=== PATIENT | female | born 1935 | race Caucasian/White ===

== ENCOUNTER 2017-06-10 22:33 | Inpatient (IN) | payer MEDICARE, MEDICAID ==
[~2017-06-10] VITALS: Ht 162.6 cm; Wt 54.4 kg
[~2017-06-10 22:33] MED LIST: CIPROFLOXACIN500 M2 ORAL; EXELON1.5 MG ORAL; NAMENDA5 MG ORAL
[2017-06-10 22:35] VITALS: BP 126/86
[2017-06-10 23:21] LABS: EOSINOPHILS % (AUTO) 0.7 % (0.0-3.0); HEMATOCRIT 38.2 % (37.0-47.0); HEMOGLOBIN 13.2 G/DL (12.0-16.0); LYMPHOCYTES % (AUTO) 36.2 % (20.0-45.0); MEAN CORPUSCULAR VOLUME 86 FL (80-99); MONOCYTES % (AUTO) 6.1 % (1.0-10.0); PLATELET COUNT 176 K/UL (150-450); RED BLOOD COUNT 4.46 M/UL (4.20-5.40); RED CELL DISTRIBUTION WIDTH 12.7 % (11.6-14.8)
[2017-06-10 23:33] LABS: ANION GAP 10 mmol/L (5-15); BLOOD UREA NITROGEN 9 mg/dL (7-18); CALCIUM 9.3 MG/DL (8.5-10.1); CARBON DIOXIDE 25 MMOL/L (21-32); CHLORIDE 102 MMOL/L (98-107); CREATININE 0.7 MG/DL (0.55-1.30); POTASSIUM 3.3 MMOL/L (3.5-5.1); SODIUM 137 MMOL/L (136-145)
[2017-06-10 23:48] LABS: ALANINE AMINOTRANSFERASE 81 U/L (12-78); ALBUMIN 2.9 G/DL (3.4-5.0); ALBUMIN/GLOBULIN RATIO 0.6 (1.0-2.7); ALKALINE PHOSPHATASE 90 U/L (46-116); ASPARTATE AMINO TRANSFERASE 59 U/L (15-37); BILIRUBIN,DIRECT 0.4 MG/DL (0.0-0.3); BILIRUBIN,TOTAL 1.4 MG/DL (0.2-1.0); CKMB 1.1 NG/ML (0.0-3.6); CREATINE KINASE 34 U/L (26-308)
[2017-06-10 23:49] LABS: APPEARANCE,URINE SLIGHTLY CLOUDY; BILIRUBIN, URINE NEGATIVE (NEGATIVE); COLOR,URINE BROWN; GLUCOSE, URINE (UA) NEGATIVE (NEGATIVE); KETONES,URINE 3+ (NEGATIVE); LEUKOCYTE ESTERASE ,URINE 1+ (NEGATIVE); NITRITE,URINE NEGATIVE (NEGATIVE); PH,URINE 7 (4.5-8.0); PROTEIN,URINE 1+ (NEGATIVE); UROBILINOGEN,URINE 8 MG/DL (0.0-1.0)
[2017-06-11] VITALS (9 sets, daily range): BP systolic 99–126; BP diastolic 64–88
[2017-06-11] MEDS ORDERED: cefTRIAXone 1 GM in NS 55 ML IVPB ONE ×2
--- NOTE | 2017-06-11 00:06 | Emergency Room Report ---
History of Present Illness General Chief Complaint: General Complaint Source: Family Member, Medical Record, EMS Present Illness HPI This is an 82-year-old female with a history of advanced dementia. She presents with chief complaint of weakness and decreased by mouth intake. Is a gradual onset. No nausea no vomiting. History is limited in this patient because of her dementia. No obvious pain. Allergies: Coded Allergies: NO KNOWN ALLERGIES (Unverified Allergy, Unknown, 01/27/15) Patient History Past Medical History: see triage record, old chart reviewed Past Surgical History: other Pertinent Family History: none Social History: Denies: smoking Last Menstrual Period: NA Now: No Immunizations: other Reviewed Nursing Documentation: PMH: Agreed, PSxH: Agreed Nursing Documentation-PMH Hx Diabetes: Yes Hx Cancer: Yes - L BREAST WITH MASTECTOMY, KIDNEY Review of Systems Constitutional: Reports: malaise, weakness Eye: Denies: eye pain, blurred vision ENT: Denies: ear pain, nose congestion, throat swelling Respiratory: Denies: cough, shortness of breath Cardiovascular: Denies: chest pain, palpitations Gastrointestinal: Denies: abdominal pain, diarrhea, nausea, vomiting Musculoskeletal: Denies: back pain, joint pain Skin: Denies: rash Neurological: Denies: headache, numbness Endocrine: Denies: increased thirst, increased urine Hematologic/Lymphatic: Denies: easy bruising All Other Systems: negative except mentioned in HPI Physical Exam Vital Signs Date Time Temp Pulse Resp B/P (MAP) Pulse Ox O2 Delivery O2 Flow Rate FiO2 06/10/17 22:27 97.7 86 16 138/64 97 Room Air 97.7 vitals unremarkable Sp02 EP Interpretation: reviewed, normal General Appearance: well appearing, no apparent distress, alert, thin Head: normocephalic, atraumatic Eyes: bilateral eye PERRL, bilateral eye EOMI ENT: hearing grossly normal, normal pharynx Neck: full range of motion, supple, no meningismus Respiratory: chest non-tender, lungs clear, normal breath sounds Cardiovascular #1: regular rate, rhythm, no murmur Gastrointestinal: normal bowel sounds, non tender, no mass, no organomegaly, no bruit, non-distended Musculoskeletal: back normal, normal range of motion Neurologic: alert Psychiatric: mood/affect normal Skin: warm/dry Medical Decision Making Diagnostic Impression: Primary Impression: Acute metabolic encephalopathy Additional Impressions: Failure to thrive in adult UTI (urinary tract infection) Qualified Codes: N30.00 - Acute cystitis without hematuria Proteinuria Qualified Codes: R80.9 - Proteinuria, unspecified ER Course Patient with generalize weakness and failure to thrive. She may have an infection causing her symptom. This could be advanced dementia. Patient given IV fluid and IV antibiotics. Will admit for further workup. She may need a feeding tube. I confirm with her family that she is a full code. EKG Diagnostic Results Rate: normal Rhythm: NSR ST Segments: no acute changes Rhythm Strip Diag. Results Rhythm Strip Time: 00:06 EP Interpretation: yes Rate: 92 Rhythm: NSR, no PVC's, no ectopy Chest X-Ray Diagnostic Results Chest X-Ray Diagnostic Results : Chest X-Ray Ordered: Yes # of Views/Limited/Complete: 1 View Indication: Chest Pain EP Interpretation: Yes Interpretation: no consolidation, no effusion, no pneumothorax, no acute cardiopulmonary disease Impression: No acute disease Electronically Signed by: Pancho Freitas MD Last Vital Signs Date Time Temp Pulse Resp B/P (MAP) Pulse Ox O2 Delivery O2 Flow Rate FiO2 06/10/17 22:35 97.8 99 17 126/86 98 Room Air 97.8 Status: improved Disposition: ADMITTED INPATIENT Condition: Stable Referrals: ODIN TURK (PCP) PANCHO FREITAS M.D. Jun 11, 2017 00:06
[2017-06-11] MEDS ORDERED: HUMULIN R100 UNIT/1 SUBQ (00:47)
[2017-06-11] MEDS ORDERED: LANTUS5 UNITS SUBQ (00:47)
[2017-06-11] MEDS ORDERED: HEPARIN SO5000 UNIT2 SUBQ (00:47)
[2017-06-11] MEDS ORDERED: NORCO 5-325 TA1 EACH ORAL (00:47)
[2017-06-11] MEDS ORDERED: MILK OF MA400 MG/51 ORAL (00:47)
[2017-06-11] MEDS ORDERED: Heparin 5000 units/ml inj SUBQ SCH (01:30)
[2017-06-11] MEDS ORDERED: Norco 5mg/325mg tab ORAL PRN (01:30)
[2017-06-11] MEDS ORDERED: Zolpidem 5mg tab ORAL PRN (01:45)
[2017-06-11] MEDS ORDERED: Morphine Sulfate 2mg/ml Inj IVP PRN (01:45)
[2017-06-11] MEDS: Heparin 5000 units/ml inj SUBQ SCH ×3 (01:45→20:39)
[2017-06-11] MEDS ORDERED: Morphine Sulfate 4mg/ml Inj IVP PRN (01:45)
[2017-06-11] MEDS ORDERED: Milk of Magnesia 30ml Ud ORAL PRN (01:45)
[2017-06-11] MEDS: Memantine 10mg tab ORAL SCH (08:17)
[2017-06-11] MEDS: Milk of Magnesia 30ml Ud ORAL SCH (08:17)
--- NOTE | 2017-06-11 08:36 | Diagnostic Imaging Report ---
Indication: Pain Technique: XRAY Chest 1v Comparison:01/27/2015 Findings: The heart is normal in size. Aorta is elongated. Lungs are clear. No pleural fluid. There are clips in the right axilla from previous right mastectomy. The bones are unremarkable. Impression: Atherosclerotic change. Previous right mastectomy. No acute abnormality.
[2017-06-11] MEDS ORDERED: Potassium Chloride 50 MEQ in Sodium Chloride 500ML 550 ML IVPB ONE (15:45)
--- NOTE | 2017-06-11 16:14 | History & Physical ---
History and Physical History & Physicial HP dictated #[id number] ODIN TURK Jun 11, 2017 16:14
[2017-06-11] MEDS: Potassium Chloride 40 MEQ in Sodium Chloride 500ML 550 ML IVPB SCH (17:34)
--- NOTE | 2017-06-11 18:45 | General Progress Note ---
Assessment/Plan Assessment/Plan Assessment - anorexia - abnormal LFT - OBS Recommendations NGT for CT scan and for feeding follow LFT PEG next week - will d/w Subjective Allergies: Coded Allergies: NO KNOWN ALLERGIES (Unverified Allergy, Unknown, 01/27/15) Objective Last 24 Hour Vital Signs Date Time Temp Pulse Resp B/P (MAP) Pulse Ox O2 Delivery O2 Flow Rate FiO2 06/11/17 16:00 98.3 96 18 115/70 97 98.3 06/11/17 16:00 97 Room Air 06/11/17 12:00 99 Room Air 06/11/17 12:00 98.3 91 18 117/68 99 98.3 06/11/17 08:00 98.5 89 16 121/78 97 98.5 06/11/17 08:00 97 Room Air 06/11/17 03:51 97.9 90 20 126/68 100 Room Air 97.9 06/11/17 02:20 97.4 90 20 116/66 99 Room Air 97.4 06/11/17 02:10 97.9 89 16 110/68 100 Room Air 97.9 06/11/17 02:00 89 16 110/68 100 Room Air 06/11/17 01:20 97.9 82 14 120/64 100 Room Air 97.9 06/11/17 00:05 86 19 125/88 99 Room Air 06/10/17 22:35 97.8 99 17 126/86 98 Room Air 97.8 06/10/17 22:27 97.7 86 16 138/64 97 Room Air 97.7 Intake and Output 06/10/17 06/11/17 19:00 07:00 Intake Total 1050 ml Output Total 100 ml Balance 950 ml IV Total 1050 ml Output Urine Total 100 ml Laboratory Tests 06/10/17 22:00: Urine Color Brown, Urine Appearance Slightly cloudy, Urine pH 7, Urine Specific [place] 1.015, Urine Protein 1+H, Urine Glucose (UA) Negative, Urine Ketones 3+H , Urine Occult Blood 1+H, Urine Nitrite Negative, Urine Bilirubin Negative, Urine Urobilinogen 8H, Urine Leukocyte Esterase 1+H, Urine RBC 0-2, Urine WBC 2- 4, Urine Squamous Epithelial Cells Few, Urine Amorphous Sediment ModerateH, Urine Bacteria Few 06/10/17 23:05: White Blood Count 8.0, Red Blood Count 4.46, Hemoglobin 13.2, Hematocrit 38.2, Mean Corpuscular Volume 86, Mean Corpuscular Hemoglobin 29.6, Mean Corpuscular Hemoglobin Concent 34.5, Red Cell Distribution Width 12.7, Platelet Count 176, Mean Platelet Volume 7.8, Neutrophils (%) (Auto) 56.0, Lymphocytes (%) (Auto) 36.2, Monocytes (%) (Auto) 6.1, Eosinophils (%) (Auto) 0.7, Basophils (%) (Auto ) 1.0, Sodium Level 137, Potassium Level 3.3L, Chloride Level 102, Carbon Dioxide Level 25, Anion Gap 10, Blood Urea Nitrogen 9, Creatinine 0.7, Estimat Glomerular Filtration Rate , Glucose Level 170H, Calcium Level 9.3, Total Bilirubin 1.4H, Direct Bilirubin 0.4H, Aspartate Amino Transf (AST/SGOT) 59H, Alanine Aminotransferase (ALT/SGPT) 81H, Alkaline Phosphatase 90, Total Creatine Kinase 34, Creatine Kinase MB 1.1, Creatine Kinase MB Relative Index 3.2, Troponin I 0.010, Total Protein 7.9, Albumin 2.9L, Globulin 5.0, Albumin/ Globulin Ratio 0.6L Height (Feet): 5 Height (Inches): 4.00 Weight (Pounds): 120 JUAN MUNOZ Jun 11, 2017 18:45
--- NOTE | 2017-06-11 21:45 | History and Physical Report ---
DATE OF ADMISSION: 06/11/2017 CHIEF COMPLAINT: Poor p.o. intake, significant weight loss, and weakness. HISTORY OF PRESENT ILLNESS: The patient is an 82-year-old female with history of advanced dementia. She lives in [facility]. For the past few months, she has been losing weight. The staff at [facility] were unable to feed her adequately because she would not open her mouth, also Marinol was ordered for appetite booster however she was not taking that either. Eventually it was decided to send her to the emergency room for evaluation, possibility for a G-tube placement. PAST MEDICAL HISTORY: Also includes history of breast cancer status post left mastectomy. The patient has history of diabetes mellitus and history of advanced dementia. SOCIAL HISTORY: No history of smoking or alcohol abuse. ALLERGIES: No known drug allergies. REVIEW OF SYSTEMS: Unobtainable. PHYSICAL EXAMINATION: GENERAL: The patient is an elderly female, in no acute distress. VITAL SIGNS: In the emergency room, blood pressure was 138/64, pulse 86, respiratory rate 16, temperature 97.7. HEENT: [place] conjunctivae. Anicteric sclerae. NECK: Supple. LUNGS: Clear to auscultation. HEART: S1 and S2 without murmurs or rubs. ABDOMEN: Soft and nontender. EXTREMITIES: No cyanosis or edema. LABORATORY FINDINGS: The CBC shows WBC of 8000, hematocrit 38.2, hemoglobin is 13.3, The chemistry panel shows a serum sodium of 137, potassium 3.3, chloride 102, CO2 25, BUN 9, creatinine 0.7, blood sugar 170. Total bilirubin is 1.4, AST is 59, ALT 81. Albumin is 2.9. ASSESSMENT: This is an 82-year-old, female with history of failure to thrive, significant weight loss, poor p.o. intake, also not taking her medications adequately, refuses to open her mouth. She is also slightly hypokalemic. PLAN: The patient will be hydrated with IV fluids. Gastrointestinal consultation was obtained for possible G-tube placement. The case was discussed with who is power of lacrosse coach and he agreed with to proceed with G-tube if necessary. Laboratories will be followed and adjustment will be in the patient's regimen. A hemoglobin A1c will be checked tomorrow because of the patient's history of diabetes and recently blood sugar has not been controlled well. Chilango Luna M.D. DR: Rafael JOB#: [id number] CC: CINTIA
[2017-06-11] MEDS: D5 1/2NS 1,000 ML IV SCH (23:43)
[2017-06-12] VITALS: BP 141/77
[2017-06-12 04:00] VITALS: BP 110/68
[2017-06-12 08:02] VITALS: BP 116/73
[2017-06-12] MEDS ORDERED: Acetaminophen 650 MG SUPP RECTAL PRN (09:00)
[2017-06-12] MEDS ORDERED: NS 275ml ONE (09:58)
[2017-06-12] MEDS ORDERED: D5 1/2NS 1000ml IV ONE (09:58)
[2017-06-12] MEDS ORDERED: Tubing IV Secondary IV ONE (09:58)
--- NOTE | 2017-06-12 10:02 | General Progress Note ---
Subjective Allergies: Coded Allergies: NO KNOWN ALLERGIES (Unverified Allergy, Unknown, 01/27/15) Subjective await CT abd Discussed with RN GT next week Objective Last 24 Hour Vital Signs Date Time Temp Pulse Resp B/P (MAP) Pulse Ox O2 Delivery O2 Flow Rate FiO2 06/12/17 08:02 100.8 85 18 116/73 99 Room Air 100.8 06/12/17 04:00 99.5 74 20 110/68 94 Room Air 99.5 06/12/17 00:00 99.3 100 20 141/77 96 Room Air 99.3 06/11/17 20:00 98.2 100 21 99/76 95 Room Air 98.2 06/11/17 16:00 98.3 96 18 115/70 97 98.3 06/11/17 16:00 97 Room Air 06/11/17 12:00 99 Room Air 06/11/17 12:00 98.3 91 18 117/68 99 98.3 Intake and Output 06/11/17 06/12/17 19:00 07:00 Intake Total 690 ml 525 ml Balance 690 ml 525 ml Intake Oral 590 ml IV Total 100 ml 525 ml # Voids 2 2 # Bowel Movements 1 1 Laboratory Tests 06/12/17 05:10: Hemoglobin A1c 7.4H Height (Feet): 5 Height (Inches): 4.00 Weight (Pounds): 120 ODIN TURK Jun 12, 2017 10:02
--- NOTE | 2017-06-12 10:14 | Diagnostic Imaging Report ---
Indication: Abdominal pain Technique: CT scan of the abdomen and pelvis was performed from the diaphragms to the symphysis pubis with intravenous contrast material only per specific request of the ordering physician.. 5 mm sections were generated. Axial, coronal, and sagittal images are presented. Dose: Total Dose Length Product - DLP [address] Dose Index - CTDIvol(s) 12.77 mGy. Automated exposure control was utilized for dose reduction. Comparison: None Findings: There is some dependent atelectasis bilaterally. The liver is normal. The gallbladder is unremarkable. The spleen is normal. The pancreas is normal. There is a duodenal diverticulum. Adrenal glands are normal. Scarring is present in the right kidney in the upper pole. There is a dilated right renal collecting system. Hypodensities are noted bilaterally, too small to characterize. The aorta contains calcification. There is no aneurysm. A small hiatal hernia is present. Retroperitoneum is free of adenopathy. Diverticula are present in the colon. There is some focal thickening of the sigmoid colon. The uterus is normal. The bladder contains a calcification measuring 9 mm. There has been previous fusion in the lumbar spine at L4-5. Unilateral pedicle screws are also present at this level. Impression: Focal thickening of the sigmoid colon. The possibility of either a sigmoid mass or mild diverticulitis is not excluded. Further evaluation with direct visualization suggested. Diverticulosis. Small hiatal hernia. Scarring in the upper pole the right kidney. Renal hypodensities, too small to characterize but likely representing cysts. Dilated right renal collecting system. This could be chronic though this is not certain. Atherosclerotic change. Duodenal diverticulum. Bladder calculus. Previous fusion of the lumbar spine as described. The CT scanner at [facility] is accredited by the [employer] [employer] and the scans are performed using protocols designed to limit radiation exposure to as low as reasonably achievable to attain images of sufficient resolution adequate for diagnostic evaluation.
[2017-06-12] MEDS: Memantine 10mg tab ORAL SCH (10:52)
[2017-06-12] MEDS: Milk of Magnesia 30ml Ud ORAL SCH (10:52)
[2017-06-12] MEDS: Heparin 5000 units/ml inj SUBQ SCH ×2 (10:55→21:06)
[2017-06-12] MEDS: D5 1/2NS 1,000 ML IV SCH (11:24)
[2017-06-12 11:42] VITALS: BP 117/69
--- NOTE | 2017-06-12 15:38 | General Progress Note ---
Assessment/Plan Assessment/Plan Assessment - anorexia - abnormal LFT - negative CT - ? sigmoid pathology (vs. collapsed lumen) - OBS Recommendations Follow LFT check CPK check Hepatitis serolofies check stool OB PEG Tuesday family to decide on eventual colonoscopy Subjective Allergies: Coded Allergies: NO KNOWN ALLERGIES (Unverified Allergy, Unknown, 01/27/15) Subjective above noted patient's refused NGT so no feeds overnight also, patient unable to take PO contrast w/o NGT for CT CT negative for liver lesions ? sigmoid colon pathology (d/w daughter over phone) pt non communicative Objective Last 24 Hour Vital Signs Date Time Temp Pulse Resp B/P (MAP) Pulse Ox O2 Delivery O2 Flow Rate FiO2 06/12/17 11:42 98.2 90 18 117/69 99 Room Air 98.2 06/12/17 10:46 98.2 98.2 06/12/17 08:02 100.8 85 18 116/73 99 Room Air 100.8 06/12/17 04:00 99.5 74 20 110/68 94 Room Air 99.5 06/12/17 00:00 99.3 100 20 141/77 96 Room Air 99.3 06/11/17 20:00 98.2 100 21 99/76 95 Room Air 98.2 06/11/17 16:00 98.3 96 18 115/70 97 98.3 06/11/17 16:00 97 Room Air Intake and Output 06/11/17 06/12/17 19:00 07:00 Intake Total 690 ml 525 ml Balance 690 ml 525 ml Intake Oral 590 ml IV Total 100 ml 525 ml # Voids 2 2 # Bowel Movements 1 1 Laboratory Tests 06/12/17 05:10: Hemoglobin A1c 7.4H Height (Feet): 5 Height (Inches): 4.00 Weight (Pounds): 120 Objective Elderly woman NCAT supple CTA RRR Soft NT ND no edema OBS JUAN MUNOZ Jun 12, 2017 15:38
[2017-06-12 16:00] VITALS: BP 112/62
--- NOTE | 2017-06-12 16:26 | Cardiology Report ---
APPROVED REPORT EKG Measurement Heart [id number] CT 132P39 [id number] Normal sinus rhythm Left axis deviation Inferior-posterior infarct, age undetermined Anterior infarct, age undetermined Abnormal ECG
[2017-06-12] MEDS: Potassium Chloride 40 MEQ in Sodium Chloride 500ML 550 ML IVPB SCH (17:30)
[2017-06-12 20:00] VITALS: BP 100/64
[2017-06-13] VITALS: BP 110/70
[2017-06-13] MEDS: D5 1/2NS 1,000 ML IV SCH ×2 (00:44→13:26)
[2017-06-13 04:00] VITALS: BP 97/61
[2017-06-13 05:47] VITALS: BP 107/65
[2017-06-13 07:58] LABS: ALANINE AMINOTRANSFERASE 53 U/L (12-78); ALBUMIN 2.4 G/DL (3.4-5.0); ALBUMIN/GLOBULIN RATIO 0.6 (1.0-2.7); ALKALINE PHOSPHATASE 68 U/L (46-116); ANION GAP 8 mmol/L (5-15); ASPARTATE AMINO TRANSFERASE 27 U/L (15-37); BILIRUBIN,TOTAL 0.5 MG/DL (0.2-1.0); BLOOD UREA NITROGEN 2 mg/dL (7-18); CALCIUM 8.6 MG/DL (8.5-10.1); CARBON DIOXIDE 25 MMOL/L (21-32); CHLORIDE 106 MMOL/L (98-107); CREATINE KINASE 23 U/L (26-308); CREATININE 0.6 MG/DL (0.55-1.30); POTASSIUM 3.3 MMOL/L (3.5-5.1); SODIUM 139 MMOL/L (136-145)
[2017-06-13 08:00] VITALS: BP 108/78
[2017-06-13] MEDS: Heparin 5000 units/ml inj SUBQ SCH (09:00)
[2017-06-13] MEDS: Memantine 10mg tab ORAL SCH (09:12)
[2017-06-13] MEDS: Milk of Magnesia 30ml Ud ORAL SCH (09:12)
--- NOTE | 2017-06-13 09:26 | General Progress Note ---
Assessment/Plan Problem List: (1) Failure to thrive in adult ICD Codes: R62.7 - Adult failure to thrive SNOMED: 490797808, 687706201 (2) Malnutrition ICD Codes: E46 - Unspecified protein-calorie malnutrition SNOMED: 44382433 (3) DM (diabetes mellitus) ICD Codes: E11.9 - Type 2 diabetes mellitus without complications SNOMED: 57564926 Status Narrative CT abd noted Subjective Allergies: Coded Allergies: NO KNOWN ALLERGIES (Unverified Allergy, Unknown, 01/27/15) Subjective Discussed with RN await GT colonoscopy ? Objective Last 24 Hour Vital Signs Date Time Temp Pulse Resp B/P (MAP) Pulse Ox O2 Delivery O2 Flow Rate FiO2 06/13/17 08:00 98.4 92 20 108/78 99 98.4 06/13/17 05:47 89 107/65 06/13/17 04:00 99.4 83 18 97/61 94 Room Air 99.4 06/13/17 00:00 99.6 97 19 110/70 98 Room Air 99.6 06/12/17 20:00 98.4 98 20 100/64 97 Room Air 98.4 06/12/17 16:00 97.7 100 18 112/62 98 97.7 06/12/17 11:42 98.2 90 18 117/69 99 Room Air 98.2 06/12/17 10:46 98.2 98.2 Intake and Output 06/12/17 06/13/17 19:00 07:00 Intake Total 1263 ml 900 ml Balance 1263 ml 900 ml Intake Oral 360 ml IV Total 903 ml 900 ml # Voids 2 3 # Bowel Movements 1 Laboratory Tests 06/13/17 04:40: Sodium Level 139, Potassium Level 3.3L, Chloride Level 106, Carbon Dioxide Level 25, Anion Gap 8, Blood Urea Nitrogen 2L, Creatinine 0.6, Estimat Glomerular Filtration Rate , Glucose Level 119H, Calcium Level 8.6, Total Bilirubin 0.5, Aspartate Amino Transf (AST/SGOT) 27, Alanine Aminotransferase ( ALT/SGPT) 53, Alkaline Phosphatase 68, Total Creatine Kinase 23L, Total Protein 6.6, Albumin 2.4L, Globulin 4.2, Albumin/Globulin Ratio 0.6L, Hepatitis A IgM Antibody [Pending], Hepatitis B Surface Antigen [Pending], Hepatitis B Core IgM Antibody [Pending], Hepatitis C Antibody [Pending] Height (Feet): 5 Height (Inches): 4.00 Weight (Pounds): 120 Cardiovascular: normal rate Respiratory/Chest: lungs clear Edema: no edema noted ODIN Apple Jun 13, 2017 09:26
[2017-06-13 12:00] VITALS: BP 108/65
--- NOTE | 2017-06-13 15:04 | Wound Care Consultation ---
Wound Assessment Wound Assessment #1: Wound Number: 1 Wound Present on Admission: Yes New Wound: No Status Change of Wound: No Wound Location Body Site Modif: left Wound Location Body Site: toe - 1st Wound Type: scab Ted Test: Does not Ted Wound Length: 0.5 Wound Width: 0.5 Wound Depth: utd Percent of Wound Black/Brown: 100 - dry adhered scab Wound Drainage Amount: None Wound Drainage Odor: None/Absent Tissue Surrounding Wound: Intact Wound General Appearance: Open to air, Clean/Dry Wound Assessment #2: Wound Number: 2 Wound Present on Admission: Yes New Wound: No Status Change of Wound: No Wound Location Body Site Modif: right Wound Location Body Site: trochanter Wound Type: pressure ulcer Ted Test: Does not Ted Pressure Ulcer Stage: Deep Tissue Injury - at risk for further skin breakdown Wound Thickness: Full Thickness Wound Length: 5.0 Wound Width: 5.0 Wound Depth: utd Percent of Wound Purple/Maroon: 100 Wound Drainage Amount: None Wound Drainage Odor: None/Absent Tissue Surrounding Wound: Erythemic - maroon. Wound General Appearance: Reddened Wound Assessment #3: Wound Number: 3 Wound Present on Admission: Yes New Wound: No Status Change of Wound: No Wound Location Body Site Modif: right Wound Location Body Site: heel Wound Type: pressure ulcer Ted Test: Does not Ted Pressure Ulcer Stage: I Wound Length: 4.0 Wound Width: 4.0 Percent of Wound [place]/Red: 100 Wound Drainage Amount: None Wound Drainage Odor: None/Absent Tissue Surrounding Wound: Intact Wound General Appearance: Reddened Wound Assessment #4: Wound Number: 4 Wound Present on Admission: Yes New Wound: No Status Change of Wound: No Wound Location Body Site Modif: left, medial Wound Location Body Site: knee Wound Type: pressure ulcer Ted Test: Does not Ted Pressure Ulcer Stage: Deep Tissue Injury - with full thickness scar tissue present surrounding tissue noted deep red/maroon color. at risk for skin breakdown. Wound Thickness: Full Thickness Wound Length: 1.0 Wound Width: 1.0 Wound Depth: utd Percent of Wound [place]/Red: 50 - deep red Percent of Wound Purple/Maroon: 50 Wound Drainage Amount: None Wound Drainage Odor: None/Absent Tissue Surrounding Wound: Erythemic Wound General Appearance: Reddened Wound Assessment #5: Wound Number: 5 Wound Present on Admission: Yes New Wound: No Status Change of Wound: No Wound Location Body Site Modif: left Wound Location Body Site: trochanter Wound Type: pressure ulcer Ted Test: Does not Ted Pressure Ulcer Stage: Deep Tissue Injury Wound Thickness: Full Thickness Wound Length: 4.0 Wound Width: 4.0 Wound Depth: utd Percent of Wound Purple/Maroon: 100 Wound Drainage Amount: None Wound Drainage Odor: None/Absent Tissue Surrounding Wound: Erythemic Wound General Appearance: Reddened Wound Assessment #6: Wound Number: 6 Wound Present on Admission: Yes New Wound: No Status Change of Wound: No Wound Location Body Site Modif: left Wound Location Body Site: heel Wound Type: pressure ulcer Ted Test: Does not Ted Pressure Ulcer Stage: Unstageable - noted with full htickness scar tissue and yellow and brown adhered dry necrotic scabbing intact. Wound Thickness: Full Thickness Wound Length: 4.0 Wound Width: 4.0 Wound Depth: utd Wound Drainage Amount: None Wound Drainage Odor: None/Absent Tissue Surrounding Wound: Erythemic Wound Comment #1 left 1st tip of toe dry scab. #2 Right trochanter deep tissue injury. possible stage 3/4 #3 right heel stage 1. #4 left medial knee pressure ulcer deep tissue injury with full thickness scar tissue present. #5 left trochanter deep tissue injury. #6 Left heel unstageable pressure ulcer. Recommendation. -Local wound care as ordered. -Keep clean and dry. -Offload affected sites. -Turn and reposition. -Heel protectors. -Apply low air loss spr mattress. -avoid shear and friction. -Assess and notify MD for any further change of condition to skin noted. KALIN RUFF Jun 13, 2017 15:04
[2017-06-13 16:00] VITALS: BP 117/74
[2017-06-13] MEDS ORDERED: D5 1/2NS 1000ml IV ONE (17:59)
--- NOTE | 2017-06-13 22:10 | General Progress Note ---
Assessment/Plan Assessment/Plan Assessment - anorexia - abnormal LFT - negative CT - ? sigmoid pathology (vs. collapsed lumen) - OBS Recommendations f/u Hepatitis serologies - pending check stool OB PEG cancelled per family request Subjective Allergies: Coded Allergies: NO KNOWN ALLERGIES (Unverified Allergy, Unknown, 01/27/15) Subjective called me earlier today in am says has had a family meeting now family do not want a PEG want to take patient back to SNF and try PO diet He understands patient not eating accepts risks of further malnutrition, dehydration, bed sores, , etc also advised regarding changes seen in colon advised can evaluate with colonoscopy now, or later he said he will think about it and contact me later if interested Objective Last 24 Hour Vital Signs Date Time Temp Pulse Resp B/P (MAP) Pulse Ox O2 Delivery O2 Flow Rate FiO2 06/13/17 16:00 97.5 86 18 117/74 98 97.5 06/13/17 12:00 98.1 87 19 108/65 95 Room Air 98.1 06/13/17 08:00 98.4 92 20 108/78 99 98.4 06/13/17 05:47 89 107/65 06/13/17 04:00 99.4 83 18 97/61 94 Room Air 99.4 06/13/17 00:00 99.6 97 19 110/70 98 Room Air 99.6 Intake and Output 06/12/17 06/13/17 19:00 07:00 Intake Total 1263 ml 900 ml Balance 1263 ml 900 ml Intake Oral 360 ml IV Total 903 ml 900 ml # Voids 2 3 # Bowel Movements 1 Laboratory Tests 06/13/17 04:40: Sodium Level 139, Potassium Level 3.3L, Chloride Level 106, Carbon Dioxide Level 25, Anion Gap 8, Blood Urea Nitrogen 2L, Creatinine 0.6, Estimat Glomerular Filtration Rate , Glucose Level 119H, Calcium Level 8.6, Total Bilirubin 0.5, Aspartate Amino Transf (AST/SGOT) 27, Alanine Aminotransferase ( ALT/SGPT) 53, Alkaline Phosphatase 68, Total Creatine Kinase 23L, Total Protein 6.6, Albumin 2.4L, Globulin 4.2, Albumin/Globulin Ratio 0.6L, Hepatitis A IgM Antibody [Pending], Hepatitis B Surface Antigen [Pending], Hepatitis B Core IgM Antibody [Pending], Hepatitis C Antibody [Pending] Height (Feet): 5 Height (Inches): 4.00 Weight (Pounds): 120 Objective Elderly woman NCAT supple CTA RRR Soft NT ND no edema OBS JUAN MUNOZ Jun 13, 2017 22:10
[2017-06-14] MEDS ORDERED: ceFAZolin sod 1 GM in D5W 55 ML IVPB ONE (06:00)
--- NOTE | 2017-06-16 10:34 | Discharge Summary ---
Discharge Summary Hospital Course Date of Admission Jun 11, 2017 at 01:05 Date of Discharge Jun 13, 2017 at 18:00 Admitting Diagnosis Failure to thrive; UTI HPI Sydnie Mesa is a 82 year old female who was admitted on Jun 11, 2017 at 01:05 for Failure To Thrive/ Urinary Tract Infection Hospital Course dc summary #[id number] Discharge Medications Continued Medications: Heparin Sod (Porcine) (Heparin Sodium*) 5 000/1 Ml Vial 5000 UNITS SUBQ EVERY 12 HOURS, VIAL Hydrocodone Bit/Acetaminophen 5-325* ([place] 5-325*) 1 Each Tablet 1 TAB ORAL Q4H PRN for For Pain, TAB 0 Refills Insulin Glargine (Lantus) 100 Unit/1 Ml Vial 0 SUBQ BEDTIME, #1 EA 0 Refills Insulin Regular, Human (Humulin R) 100 Unit/1 Ml Vial 0 SUBQ, VIAL Magnesium Hydroxide* (Milk Of Magnesia*) 400 Mg/5 Ml Oral.susp 30 ML ORAL DAILY, ML Memantine Hcl* (Namenda*) 5 Mg Tablet Unknown Dose ORAL DAILY, TAB Rivastigmine Tartrate* (Exelon*) 1.5 Mg Capsule Unknown Dose ORAL TWICE A DAY, #20 CAP 0 Refills Discontinued Medications: Ciprofloxacin Hcl* (Ciprofloxacin Hcl*) 500 Mg Tablet 500 MG ORAL Q12H, #20 TAB Discharge Condition Upon Discharge: stable Discharge Disposition Patient was discharged to SNF/Subacute Facility(03) Discharge Diagnoses: Discharge Instructions Discharge Instructions Special Instructions I have been assigned to complete a D/C Summary on this account. I was not involved in the patient management Cristina Farmer NP ([place]) Jun 16, 2017 10:34
--- NOTE | 2017-06-17 07:45 | Discharge Summary 2 SIG ---
DATE OF ADMISSION: 06/11/2017 DATE OF DISCHARGE: 06/13/2017 REASON FOR ADMISSION: 82-year-old female with past medical history of breast cancer, status post mastectomy, diabetes mellitus, and advanced dementia, was sent from the assisted facility for evaluation. The patient noted to have poor oral intake, was losing weight, and blood sugar recently was not well controlled as well. Upon evaluation in ED, noted stable vital signs. No leukocytosis. Hemoglobin and hematocrit stable. Potassium - 3.3, otherwise stable electrolytes. Blood sugar -170. Albumin -2.9. AST- 59 and ALT- 81. The patient admitted with diagnoses of acute metabolic encephalopathy, failure to thrive, poor oral intake, significant weight loss, diabetes mellitus, abnormal LFT, and advanced dementia. HOSPITAL COURSE: The patient admitted. The patient started on IV hydration. GI consult was requested. The patient's who was also the patient's durable cizec-qw-tsgstzib, initially agreed with G-tube placement if necessary. GI closely followed. NG-tube was placed for contrast to get CT of the abdomen and pelvis in view of elevated LFT. LFTs were trending down. Hepatitis panel was negative. CT of the abdomen and pelvis revealed no liver pathology and showed questionable sigmoid pathology versus collapsed lumen. Initially PEG placement was planned. Wound care provided as per wound care nurse recommendation for right trochanter deep tissue injury, possible stage III or IV, and right heel stage I pressure ulcer, both present on admission. Electrolytes and renal parameters were closely monitored. Electrolytes were corrected as needed. Nephrotoxics were avoided. Blood sugar was managed with sliding scale of insulin. Hemoglobin A1c -7.4. DVT prophylaxis provided. Bowel regimen instituted. Supportive care provided. Dietitian had seen and evaluated the patient, deemed the patient to be a high risk for malnutrition. She recommended tube feeding type and rate (after G tube placement) calculated on daily calorie needs as well as the protein supplements to assist with wound healing and for nutritional support. However, who was the patient's durable wiste-er-wmchbtan, eventually declined to sign the consent for gastrostomy tube placement, and the patient subsequently was transferred back to assisted facility. FINAL DIAGNOSES: 1. Acute metabolic encephalopathy. 2. Failure to thrive in adult. 3. Anorexia. 4. Abnormal liver function tests, resolved. 5. Advanced dementia. 6. Diabetes mellitus. 7. Significant weight loss. 8. Right trochanter deep tissue injury, possible stage III or IV, present on admission. 9. Right heel stage I pressure ulcer, present on admission. 10. Malnutrition. DISCHARGE MEDICATIONS: See medication reconciliation list. DISCHARGE INSTRUCTIONS: The patient discharged to assisted facility. Follow up with medical doctor at the facility. Chilango Luna M.D. I have been assigned to dictate discharge summary on this account and I was not involved in the patient's management. Cristina LeyvaE.J. Noble HospitalNelly, N.P. DR: SYDNI JOB#: [id number] CC: CINTIA
== END 2017-06-13 18:00 | DRG 70 ==
LOC: EDBD 22:33 → EMR 23:17 → 4W 06-11 01:05 → EDBEDREQ 06-11 01:16
DX: G93.41 Metabolic encephalopathy (principal); L89.214 Pressure ulcer of right hip, stage 4; E46 Unspecified protein-calorie malnutrition; F03.90 Unspecified dementia, unspecified severity, without behavioral disturbance, psychotic disturbance, mood disturbance, and anxiety; L89.611 Pressure ulcer of right heel, stage 1; E11.9 Type 2 diabetes mellitus without complications; R62.7 Adult failure to thrive; Z85.3 Personal history of malignant neoplasm of breast; Z90.12 Acquired absence of left breast and nipple; R79.89 Other specified abnormal findings of blood chemistry
CPT/HCPCS: 36415; 71045; 74177; 80053; 81003; 82248; 82550; 82553; 83036; 84484; 85025; 86705; 86709; 86803; 87081; 87340; 93005; 99285

== ENCOUNTER 2018-01-15 23:06 | Emergency (ER) | payer MEDICARE, MEDICAID ==
[~2018-01-15] VITALS: Ht 162.6 cm; Wt 56.2 kg
[~2018-01-15 23:06] MED LIST changes: +HEPARIN SO5000 UNIT2 SUBQ; +HUMULIN R100 UNIT/1 SUBQ; +LANTUS5 UNITS SUBQ; +MILK OF MA400 MG/51 ORAL; +NORCO 5-325 TA1 EACH ORAL
--- NOTE | 2018-01-15 23:28 | Emergency Room Report ---
History of Present Illness General Chief Complaint: General Complaint Source: EMS Present Illness HPI Patient was brought in by paramedics Report was that the patient had pulled out her NG feeding tube earlier this morning This was replaced at the nursing facility and patient has been getting fed However the positioning was not confirmed Patient herself has significant dementia Not able to provide any history This does limit the history of present illness There was no reports of vomiting or diarrhea No reports of any cough or fever Allergies: Coded Allergies: NO KNOWN ALLERGIES (Unverified Allergy, Unknown, 01/27/15) Patient History Past Medical History: see triage record Pertinent Family History: none Reviewed Nursing Documentation: PMH: Agreed; PSxH: Agreed Nursing Documentation-PMH Hx Cardiac Problems: No Hx Diabetes: Yes History Of Psychiatric Problem: Yes - dementia Hx Dementia: Yes Review of Systems All Other Systems: negative except mentioned in HPI Physical Exam Vital Signs Date Time Temp Pulse Resp B/P (MAP) Pulse Ox O2 Delivery O2 Flow Rate FiO2 01/15/18 23:07 98.2 86 16 92/60 98 Room Air 98.2 Sp02 EP Interpretation: reviewed, normal General Appearance: no apparent distress Head: normocephalic, atraumatic Eyes: bilateral eye PERRL, bilateral eye EOMI ENT: normal pharynx Neck: supple, other - Dobbhoff in position Respiratory: lungs clear, normal breath sounds Cardiovascular #1: regular rate, rhythm Gastrointestinal: non tender, soft Musculoskeletal: other - Patient chronically debilitated no obvious focal deficit Neurologic: responsive - To verbal and physical stimuli Skin: normal color, no rash Lymphatic: no adenopathy Medical Decision Making Diagnostic Impression: Primary Impression: Encounter for nasogastric (NG) tube placement ER Course Given the history exam and presentation X-ray imaging was obtained which shows that the feeding tube has gone through the abdominal area appropriately However does appear to have extended past and possibly entering into the duodenum Therefore this was pulled back one to 2 inches And patient was transferred to this nursing facility PMD notified nursing facility notified, Other X-Ray Diagnostic Results Other X-Ray Diagnostic Results : X-Ray ordered: KUB # of Views/Limited Vs Complete: 1 View Indication: Other - Line placement EP Interpretation: Yes Interpretation: no dislocation, no fractures, nonspecific bowel gas, other - Feeding tube appears to pass through the stomach possibly into the duodenum, Impression: No acute disease Electronically Signed by: Rosa Maria Dyer DO Last Vital Signs Date Time Temp Pulse Resp B/P (MAP) Pulse Ox O2 Delivery O2 Flow Rate FiO2 01/15/18 23:07 98.2 86 16 92/60 98 Room Air 98.2 Status: improved Disposition: XFER SNF Condition: Improved Additional Instructions: Patient is provided with the discharge instructions notified to follow up with primary doctor in the next 2-3 days otherwise return to the er with any worsening symptoms. Please note that this report is being documented using [employer] technology. This can lead to erroneous entry secondary to incorrect interpretation by the dictating instrument. Rosa Maria Dyer DO Jan 15, 2018 23:28
[2018-01-16 00:15] VITALS: BP 114/69
[2018-01-16 00:20] VITALS: BP 114/69
--- NOTE | 2018-01-16 09:46 | Diagnostic Imaging Report ---
Indication: Reason For Exam: TUBE PLCMT Technique: Supine view of the upper abdomen Comparison: Senior Supplier Quality Engineer image from CT scan 06/12/2017 Findings: There is a weighted enteric feeding tube in place, tip projected level gastric antrum. There are postsurgical changes of lower lumbar spine. Visualized bowel gas is unremarkable Impression: Satisfactory position of nasogastric tube
== END 2018-01-16 00:20 ==
LOC: EDBD 23:06 → EMR 23:38
DX: Z46.59 Encounter for fitting and adjustment of other gastrointestinal appliance and device (principal); E11.9 Type 2 diabetes mellitus without complications; F03.90 Unspecified dementia, unspecified severity, without behavioral disturbance, psychotic disturbance, mood disturbance, and anxiety
CPT/HCPCS: 74018; 99284

== ENCOUNTER 2018-03-10 12:05 | Emergency (ER) | payer MEDICARE, MEDICAID ==
[~2018-03-10] VITALS: Ht 152.4 cm; Wt 54.4 kg
[2018-03-10 12:11] VITALS: BP 92/56
--- NOTE | 2018-03-10 14:09 | Emergency Room Report ---
History of Present Illness General Chief Complaint: Malfunctioning Gastric Tube Source: Medical Record Present Illness HPI Patient is 82-year-old female sent by long-term for NG-tube replacement. Patient was noted to have malfunctioning tube. This had become clogged. Patient was noted to be nonverbal. The patient not been vomiting. History is markedly limited by patient's mental status. History is obtained from long-term staff. Allergies: Coded Allergies: NO KNOWN ALLERGIES (Unverified Allergy, Unknown, 01/27/15) Patient History Past Medical History: see triage record Reviewed Nursing Documentation: PMH: Agreed; PSxH: Agreed Nursing Documentation-PMH Past Medical History Deferred: Pt Cognitively Impaired Past Medical History: Deferred Hx Cardiac Problems: No Hx Diabetes: Yes Hx Neurological Problems: Yes Hx Dementia: Yes Review of Systems All Other Systems: negative except mentioned in HPI Physical Exam Vital Signs Date Time Temp Pulse Resp B/P (MAP) Pulse Ox O2 Delivery O2 Flow Rate FiO2 03/10/18 11:54 97.7 101 24 130/80 98 Nasal Cannula 2.0 General Appearance: alert, Chronically Ill Head: normocephalic, atraumatic Eyes: bilateral eye other - eyes open Neck: supple, limited range of motion Respiratory: decreased breath sounds, speaking full sentences Cardiovascular #1: normal peripheral pulses, regular rate, rhythm Gastrointestinal: non tender, soft Neurologic: other - poor alertness, bed ridden Psychiatric: depressed affect Skin: no rash Medical Decision Making Diagnostic Impression: Primary Impression: Encounter for nasogastric (NG) tube placement ER Course Patient presented for NG-tube replacement. The patient's NG tube was changed by nursing staff. The patient was noted to have adequate placement on post procedure x-ray. The patient was discharged back to nursing facility via BLS ambulance Last Vital Signs Date Time Temp Pulse Resp B/P (MAP) Pulse Ox O2 Delivery O2 Flow Rate FiO2 03/10/18 12:11 98.8 98 21 92/56 100 Nasal Cannula 03/10/18 11:54 2.0 Status: improved Disposition: [facility] Condition: Stable Referrals: NON PHYSICIAN (PCP) Patient Instructions: Feeding Tube Use Jose Schilling MD Mar 10, 2018 14:09
[2018-03-10 14:11] VITALS: BP 125/85
--- NOTE | 2018-03-10 14:11 | Diagnostic Imaging Report ---
Indication: Post nasogastric tube placement Technique: Supine view of the upper abdomen Comparison: 01/15/2018 Findings: There is a nasogastric tube in place, tip projected level gastric fundus, proximal port just beyond the expected level gastroesophageal junction. Bowel gas pattern is unremarkable. Lumbar spine fusion hardware is noted. Surgical clips are seen in the right axilla. Impression: Satisfactory nasogastric intubation Other findings as noted
== END 2018-03-10 14:13 | disposition home or self-care (01) ==
LOC: EDBD 12:05 → EMR 13:48
DX: K94.23 Gastrostomy malfunction (principal); F03.90 Unspecified dementia, unspecified severity, without behavioral disturbance, psychotic disturbance, mood disturbance, and anxiety; E11.9 Type 2 diabetes mellitus without complications
CPT/HCPCS: 74018; 99283

== ENCOUNTER 2018-03-16 11:57 | Inpatient (IN) | payer MEDICARE, MEDICAID ==
[~2018-03-16] VITALS: Ht 160 cm; Wt 45.4 kg
[2018-03-16] MEDS ORDERED: Sodium Chloride 500ML 500 ML IV ONE (12:07)
[2018-03-16 12:38] LABS: BASOPHILS % (AUTO) 1.6 % (0.0-2.0); EOSINOPHILS % (AUTO) 1.2 % (0.0-3.0); HEMATOCRIT 30.2 % (37.0-47.0); HEMOGLOBIN 9.5 G/DL (12.0-16.0); LYMPHOCYTES % (AUTO) 21.7 % (20.0-45.0); MEAN CORPUSCULAR VOLUME 82 FL (80-99); MONOCYTES % (AUTO) 11.2 % (1.0-10.0); NEUTROPHILS % (AUTO) 64.3 % (45.0-75.0); PLATELET COUNT 380 K/UL (150-450); RED BLOOD COUNT 3.69 M/UL (4.20-5.40); RED CELL DISTRIBUTION WIDTH 16.3 % (11.6-14.8)
[2018-03-16 12:42] LABS: INR 1.1 (0.9-1.1)
[2018-03-16 12:55] LABS: ANION GAP 9 mmol/L (5-15); BLOOD UREA NITROGEN 20 mg/dL (7-18); CALCIUM 9.2 MG/DL (8.5-10.1); CARBON DIOXIDE 25 MMOL/L (21-32); CHLORIDE 105 MMOL/L (98-107); CREATININE 0.5 MG/DL (0.55-1.30); POTASSIUM 3.9 MMOL/L (3.5-5.1); SODIUM 139 MMOL/L (136-145)
[2018-03-16 13:09] LABS: ALANINE AMINOTRANSFERASE 14 U/L (12-78); ALBUMIN 2.2 G/DL (3.4-5.0); ALBUMIN/GLOBULIN RATIO 0.3 (1.0-2.7); ALKALINE PHOSPHATASE 121 U/L (46-116); ASPARTATE AMINO TRANSFERASE 21 U/L (15-37); BILIRUBIN,TOTAL 0.4 MG/DL (0.2-1.0); CKMB 0.5 NG/ML (0.0-3.6); CREATINE KINASE 16 U/L (26-308)
[2018-03-16 13:26] VITALS: BP 107/64
[2018-03-16 15:27] VITALS: BP 123/75
--- NOTE | 2018-03-16 15:39 | Emergency Room Report ---
History of Present Illness General Chief Complaint: Malfunctioning Gastric Tube Source: Family Member, EMS Present Illness HPI It was reported the patient has not been able take oral intake for the past 24 hours Patient has terminal dementia Has had repeat NG tube placements with some complications including blockages and malfunctioning Patient has been discussed with has been regarding feeding tube placement Patient herself is not able to provide any history and is not verbal There was no reports of vomiting or diarrhea denies any fevers Allergies: Coded Allergies: NO KNOWN ALLERGIES (Unverified Allergy, Unknown, 01/27/15) Patient History Limited by: medical condition Past Medical History: see triage record Pertinent Family History: unable to obtain Reviewed Nursing Documentation: PMH: Agreed; PSxH: Agreed Nursing Documentation-PMH Hx Cardiac Problems: No Hx Diabetes: Yes Hx Neurological Problems: Yes Hx Dementia: Yes Review of Systems All Other Systems: limited - Other than the ones mentioned in the history of present illness all others are reviewed however they do stay limited due to the patient's mental status Physical Exam Vital Signs Date Time Temp Pulse Resp B/P (MAP) Pulse Ox O2 Delivery O2 Flow Rate FiO2 03/16/18 12:00 99.0 67 20 100/62 100 Room Air Sp02 EP Interpretation: reviewed, normal General Appearance: no apparent distress - However appears cachectic and, terminally ill Head: normocephalic Eyes: bilateral eye PERRL ENT: dry mucus membranes Neck: supple, thyroid normal Respiratory: lungs clear, normal breath sounds, no respiratory distress, no retraction Cardiovascular #1: regular rate, rhythm Gastrointestinal: non tender, soft Musculoskeletal: other - Patient does not follow commands, is sluggish and minimal responsiveness Neurologic: responsive Skin: normal color, no rash Lymphatic: no adenopathy Medical Decision Making Diagnostic Impression: Primary Impression: Dehydration ER Course Patient's is very educated understands the situation It was discussed regarding the request for possible feeding tube Patient's case is discussed with the patient's primary physician as well There is significant social/medical conditions the discuss Patient is provided with further IV hydration Placed into admission for further discussion and care Labs Test 03/16/18 12:20 White Blood Count 7.0 K/UL (4.8-10.8) Red Blood Count 3.69 M/UL (4.20-5.40) Hemoglobin 9.5 G/DL (12.0-16.0) Hematocrit 30.2 % (37.0-47.0) Mean Corpuscular Volume 82 FL (80-99) Mean Corpuscular Hemoglobin 25.7 PG (27.0-31.0) Mean Corpuscular Hemoglobin Concent 31.4 G/DL (32.0-36.0) Red Cell Distribution Width 16.3 % (11.6-14.8) Platelet Count 380 K/UL (150-450) Mean Platelet Volume 6.5 FL (6.5-10.1) Neutrophils (%) (Auto) 64.3 % (45.0-75.0) Lymphocytes (%) (Auto) 21.7 % (20.0-45.0) Monocytes (%) (Auto) 11.2 % (1.0-10.0) Eosinophils (%) (Auto) 1.2 % (0.0-3.0) Basophils (%) (Auto) 1.6 % (0.0-2.0) Prothrombin Time 11.4 SEC (9.30-11.50) Prothromb Time International Ratio 1.1 (0.9-1.1) Activated Partial Thromboplast Time 30 SEC (23-33) Sodium Level 139 MMOL/L (136-145) Potassium Level 3.9 MMOL/L (3.5-5.1) Chloride Level 105 MMOL/L (98-107) Carbon Dioxide Level 25 MMOL/L (21-32) Anion Gap 9 mmol/L (5-15) Blood Urea Nitrogen 20 mg/dL (7-18) Creatinine 0.5 MG/DL (0.55-1.30) Estimat Glomerular Filtration Rate mL/min (>60) Glucose Level 102 MG/DL (74-106) Calcium Level 9.2 MG/DL (8.5-10.1) Total Bilirubin 0.4 MG/DL (0.2-1.0) Aspartate Amino Transf (AST/SGOT) 21 U/L (15-37) Alanine Aminotransferase (ALT/SGPT) 14 U/L (12-78) Alkaline Phosphatase 121 U/L (46-116) Total Creatine Kinase 16 U/L (26-308) Creatine Kinase MB 0.5 NG/ML (0.0-3.6) Creatine Kinase MB Relative Index 3.1 Troponin I 0.016 ng/mL (0.000-0.056) Total Protein 9.0 G/DL (6.4-8.2) Albumin 2.2 G/DL (3.4-5.0) Globulin 6.8 g/dL Albumin/Globulin Ratio 0.3 (1.0-2.7) Last Vital Signs Date Time Temp Pulse Resp B/P (MAP) Pulse Ox O2 Delivery O2 Flow Rate FiO2 03/16/18 15:27 98.9 110 20 123/75 100 Room Air Status: improved Disposition: ADMITTED INPATIENT Condition: Serious Referrals: NON PHYSICIAN (PCP) Rosa Maria Dyer DO Mar 16, 2018 15:39
[2018-03-16 16:40] VITALS: BP 106/84
--- NOTE | 2018-03-16 16:53 | Diagnostic Imaging Report ---
Indication: Chest pain Technique: One view of the chest Comparison: 06/10/2017 Findings: Patient is rotated to the right. The right lung is slightly hyperinflated. The lungs and pleural spaces are otherwise clear. The heart size is normal. The aorta is tortuous and calcified. There is a nasogastric tube in place, tip projected beyond the edge of image, presumably good position. Surgical clips are seen in the right axilla. Impression: Findings as noted. No definite acute process
[2018-03-16 17:17] VITALS: BP 117/88
[2018-03-16] MEDS ORDERED: LORAZEPAM0.5 GM SL (18:24)
[2018-03-16] MEDS ORDERED: ACETAMINOPHEN325 M1 NGT (18:28)
[2018-03-16] MEDS ORDERED: ATROPINE SU1 MG/1 M1 SL (18:28)
[2018-03-16] MEDS ORDERED: D5 1/2NS 1,000 ML IV SCH (19:45)
[2018-03-16 20:00] VITALS: BP 128/74
[2018-03-16] MEDS ORDERED: LORazepam 1mg tab GT PRN (20:15)
[2018-03-16] MEDS ORDERED: Morphine 5mg/2.5ml Oral Soln ORAL PRN (20:15)
[2018-03-16] MEDS ORDERED: Acetaminophen 650mg/20.3ml NG PRN (20:15)
[2018-03-16] MEDS ORDERED: Insulin Human Regular 100units/ml 3ml SUBQ SCH (21:00)
[2018-03-16] MEDS ORDERED: Morphine Sulfate 10mg/5ml Oral Soln ud ORAL PRN (21:30)
[2018-03-16] MEDS: Heparin 5000 units/ml inj SUBQ SCH (22:27)
[2018-03-17] VITALS (8 sets, daily range): BP systolic 102–150; BP diastolic 62–91
[2018-03-17] MEDS ORDERED: NovoLOG Insulin Flexpen SUBQ SCH (06:30)
[2018-03-17] MEDS ORDERED: Ipratropium 0.02% Inh Soln 2.5ml UD HHN SCH (07:00)
[2018-03-17] MEDS ORDERED: Milk of Magnesia 30ml Ud ORAL SCH (09:00)
[2018-03-17] MEDS: Heparin 5000 units/ml inj SUBQ SCH ×2 (09:45→21:57)
[2018-03-17] MEDS ORDERED: Acetaminophen 650mg/20.3ml NG PRN (11:00)
--- NOTE | 2018-03-17 11:06 | Diagnostic Imaging Report ---
Indication: Dyspnea Technique: One view of the chest Comparison: 03/16/2018 Findings: There is interim complete opacification of the right hemithorax. There is abrupt cut off of the right mainstem bronchus lucency suggesting endobronchial obstruction. There is shift of the mediastinum to the right. The left lung and pleural space remain clear. The heart size is difficult to assess. Stable nasogastric tube, tip projected at the level gastric antrum. Surgical clips are again seen in the right axilla Impression: Interim complete opacification of the right hemithorax, presumably due to complete atelectasis of the right lung. Abrupt cut off of the right mainstem bronchus suggests endobronchial obstruction. Dr. Griffin notified at the time of interpretation
[2018-03-17] MEDS: D5 1/2NS 1,000 ML IV SCH (11:42)
--- NOTE | 2018-03-17 11:52 | History & Physical ---
History and Physical History & Physicial HP dictated # [id number] Chilango Luna MD Mar 17, 2018 11:52
[2018-03-17] MEDS ORDERED: LORazepam 1mg tab GT PRN (12:00)
[2018-03-17] MEDS ORDERED: Morphine Sulfate 10mg/5ml Oral Soln ud ORAL PRN (12:00)
[2018-03-17] MEDS: NovoLOG Insulin Flexpen SUBQ SCH ×3 (12:49→21:58)
[2018-03-17] MEDS ORDERED: Albuterol/Ipratropium 3ml neb HHN PRN (14:15)
--- NOTE | 2018-03-17 16:17 | Consultation ---
Consult Note Consult Note DICT # [id number] Jarett Griffin MD Mar 17, 2018 16:17
--- NOTE | 2018-03-17 18:00 | History and Physical Report ---
DATE OF ADMISSION: 03/16/2018 CHIEF COMPLAINT: The patient had a clotted NG tube. HISTORY OF PRESENT ILLNESS: This is a 82-year-old, female with a history of advanced dementia. The patient has had a NG-tube for few months now because the refused G-tube before. She has had also a recurrent aspiration pneumonia. Recently she was at [facility] when the daughter decided to make her hospice care and to remove NG however the did not want that so NG tube feeding was continued. The patient was sent back to [facility] after she was also treated for respiratory failure and pneumonia. I received a call from the [place] [facility] that the patient's NG tube was clotted again. The patient was sent to the emergency room and was admitted for further care. However while she was on the floor she developed acute respiratory failure, drop in O2 saturation, and she was transferred to [facility]. Currently she is on face mask and tachypneic. She is DNR. PAST MEDICAL HISTORY: As mentioned, history of advanced dementia. She had high aspiration that is why NG tube was inserted, recurrent pneumonias, bedridden, diabetes. MEDICATIONS: Reviewed in the EMR. SOCIAL HISTORY: No history of smoking or alcohol abuse. ALLERGIES: No known drug allergies. REVIEW OF SYSTEMS: Unobtainable. PHYSICAL EXAMINATION: GENERAL: The patient is an elderly female who is tachypneic. VITAL SIGNS: Blood pressure is 116/67, pulse 127, temperature 99, respiratory rate is 30. HEENT: Pale conjunctivae. Anicteric sclerae. NECK: Supple. LUNGS: Diffuse rhonchi and rales. HEART: S1 and S2 without murmurs or rubs. ABDOMEN: Soft and nontender. EXTREMITIES: No cyanosis or edema. LABORATORY FINDINGS: The CBC shows a WBC of 7000, hematocrit 32.2, hemoglobin is 9.5, platelets 380,000. The chemistry panel shows a sodium 139, potassium 3.9, chloride 105, CO2 25, BUN 20, creatinine 0.5 albumin is 2.2. Blood gas which was done this morning showed a pH of 7.32, pCO2 of 36, and pO2 of 40. ASSESSMENT: This is an 82-year-old, female, who is admitted for initially for clotted NG tube however the patient has developed respiratory failure, possible aspiration pneumonia. PLAN: The patient will be NPO. She was started on IV fluids. The patient will be on sliding scale insulin. Pulmonary consultation was obtained. I will have to talk to , Montez to see if he would agree with hospice care. Chilango Luna M.D. DR: Rafael JOB#: [id number] CC:
[2018-03-17] MEDS: Albuterol/Ipratropium 3ml neb HHN SCH (19:02)
[2018-03-17] MEDS: Acetylcysteine 20% Soln 4ml HHN SCH (19:02)
[2018-03-17] MEDS: Vitamin A&D Oint 2oz Tube TOPIC SCH (21:56)
--- NOTE | 2018-03-17 23:30 | Consultation ---
DATE OF CONSULTATION: 03/17/2018 PULMONARY CONSULTATION CONSULTING PHYSICIAN: Jarett Griffin M.D. REFERRING PHYSICIAN: Chilango Luna M.D. REASON FOR CONSULTATION: This is a very unfortunate 82-year-old female with history of advanced dementia, status post NG tube (previously declined PEG) with multiple aspiration events in the past, recent admission at [facility] with renal failure, septic shock, advanced dementia with conflicting goals of cares, DNAR, but not quite on hospice, who was admitted through the ER with decreased intake and generalized decline. She was also having issues with her NG tube. The patient was admitted to medical/surgical this morning and the patient acutely became hypoxemic and tachycardic with saturating in the low 50s. Ultimately, she was placed on a non-rebreather. Stat ABG was ordered, which was 7.32/36/40/18/67. A chest x-ray was done as well, which showed a complete opacification of the right hemithorax, likely secondary to mucus plugging and atelectasis. Prior chest x-ray from the night before was rotated and a poor study, but both lungs were aerated. At the time of my evaluation, the patient is awake, nonverbal, and in no distress, but on high-flow O2. PAST MEDICAL HISTORY: 1. Advanced dementia. 2. Dysphagia. 3. Multiple episodes of aspiration pneumonia. 4. History of recent VRE UTI. 5. History of perforated diverticulitis. 6. Breast cancer, status post mastectomy. ALLERGIES: No known drug allergies. MEDICATIONS: Cpuzr-xd-gkvaxsdpv medications reviewed. Current medications reviewed. 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 No history of tobacco, alcohol, or drug use. FAMILY HISTORY: Noncontributory. REVIEW OF SYSTEMS: Unobtainable. PHYSICAL EXAMINATION: VITAL SIGNS: Temperature 99, pulse 100, blood pressure 146/81, respiratory rate 19, and saturating 96% on non-rebreather. GENERAL: The patient is an elderly, demented, nonverbal female. She has an NG tube. HEENT: Normocephalic and atraumatic. Oropharynx clear. NECK: Supple without lymphadenopathy. CHEST: Coarse breath sounds on the left. Absent breath sounds on the right. HEART: Tachycardic and regular. ABDOMEN: Soft, nontender, nondistended. EXTREMITIES: No cyanosis, clubbing, or edema. ANCILLARY DATA: ABG 7.32/36/40/18/67. White count 7, hemoglobin 9.5, and platelet count 680,000. INR 1.1. Sodium 139, potassium 3.9, chloride 105, bicarbonate 25, BUN 20, creatinine 0.5, glucose 102, calcium 9.2, total bilirubin 0.4, AST 21, ALT 14, and alkaline phosphatase 121. CK 16, troponin negative. Total protein 9.0, albumin 2.2. Chest x-ray from the ER yesterday, rotated study, bilateral lungs aerated. Chest x-ray from today, complete opacification of right hemithorax, likely secondary to mucus plugging. ASSESSMENT: The patient is an 82-year-old female, care home resident, nonverbal at baseline with advanced dementia, dysphagia, NG tube, and multiple other medical problems, admitted with generalized failure to thrive and NG tube problems, now with acute hypoxemia secondary to complete opacification of the right hemithorax from mucus plugging. The patient is DNAR and we will attempt conservative measures to re-aerate the right lung. PROBLEM LIST: 1. Acute hypoxemic respiratory failure. 2. Complete opacification of right hemithorax. 3. Likely mucus plugging. 4. History of recurrent aspiration pneumonia. 5. Dysphagia, status post NG tube. 6. NG tube malfunction. 7. Advanced Alzheimer dementia. 8. Nonverbal at baseline. 9. History of breast cancer, status post mastectomy. 10. History of perforated diverticulitis. 11. History of recent VRE UTI. 12. DNAR. TREATMENT PLAN: 1. Optimize pulmonary hygiene/mobilize as tolerated. 2. Xjmhj-wcm-kgpae and p.r.n. DuoNeb bronchodilators. 3. Cmlud-jaj-nkebu and p.r.n. Mucomyst. 4. CPT q.i.d. 5. Aggressive suctioning. 6. Observe off antibiotics with a low threshold to start healthcare-associated coverage. 7. NPO. 8. No NG tube feeds. 9. BiPAP is within goals of care per my discussion with Dr. Luna, but given her altered mental status and lung collapse, we will hold off on BiPAP unless absolutely necessary. 10. No plan for intubation. 11. No plan for bronchoscopy. 12. Monitor volumes and renal function. 13. DVT prophylaxis, heparin subcutaneous. 14. DNAR, continue to discuss goals of care. Dr. Lnua, thank you for allowing me to assist with the care of your patient. If I may be of any assistance in the future, please do not hesitate to ask. Jarett Griffin M.D. DR: PATRIC JOB#: [id number] CC:
[2018-03-18] VITALS: BP 109/60
[2018-03-18] MEDS: Acetylcysteine 20% Soln 4ml HHN SCH ×4 (01:06→19:10)
[2018-03-18] MEDS: Albuterol/Ipratropium 3ml neb HHN SCH ×5 (01:07→23:48)
[2018-03-18] MEDS: D5 1/2NS 1,000 ML IV SCH (03:00)
[2018-03-18 04:00] VITALS: BP 107/62
[2018-03-18] MEDS: NovoLOG Insulin Flexpen SUBQ SCH ×4 (06:17→21:00)
[2018-03-18 08:00] VITALS: BP 101/61
[2018-03-18] MEDS: Milk of Magnesia 30ml Ud ORAL SCH (09:00)
[2018-03-18] MEDS: Heparin 5000 units/ml inj SUBQ SCH ×2 (09:32→23:01)
[2018-03-18] MEDS: Vitamin A&D Oint 2oz Tube TOPIC SCH ×2 (09:32→22:58)
--- NOTE | 2018-03-18 09:55 | Pulmonology Progress Note ---
Assessment/Plan Problems: (1) Alzheimer disease (2) Mucus plugging of bronchi (3) Lung collapse (4) Encounter for nasogastric (NG) tube placement (5) Malnutrition (6) DM (diabetes mellitus) Assessment/Plan ASSESSMENT: The patient is an 82-year-old female, long-term resident, nonverbal at baseline with advanced dementia, dysphagia, NG tube, and multiple other medical problems, admitted with generalized failure to thrive and NG tube problems, now with acute hypoxemia secondary to complete opacification of the right hemithorax from mucus plugging. The patient is DNAR and we will attempt conservative measures to re-aerate the right lung. PROBLEM LIST: 1. Acute hypoxemic respiratory failure. 2. Complete opacification of right hemithorax. 3. Likely mucus plugging. 4. History of recurrent aspiration pneumonia. 5. Dysphagia, status post NG tube. 6. NG tube malfunction. 7. Advanced Alzheimer dementia. 8. Nonverbal at baseline. 9. History of breast cancer, status post mastectomy. 10. History of perforated diverticulitis. 11. History of recent VRE UTI. 12. DNAR. TREATMENT PLAN: 1. Optimize pulmonary hygiene/mobilize as tolerated. 2. Rnbwf-gfk-umqwm and p.r.n. DuoNeb bronchodilators. 3. Svmzw-twx-vqghf and p.r.n. Mucomyst. 4. CPT q.i.d. 5. Aggressive suctioning. 6. Observe off antibiotics with a low threshold to start healthcare-associated coverage. 7. NPO. 8. CXR 9. BiPAP is within goals of care per my discussion with Dr. Luna, but given her altered mental status and lung collapse, we will hold off on BiPAP unless absolutely necessary. 10. No plan for intubation. 11. No plan for bronchoscopy. 12. Monitor volumes and renal function. 13. DVT prophylaxis, heparin subcutaneous. 14. DNAR, continue to discuss goals of care. Subjective Allergies: Coded Allergies: NO KNOWN ALLERGIES (Unverified Allergy, Unknown, 01/27/15) Subjective AFVSS, still on VM but 100% on 12L + cough + congestion no F/C Objective Last 24 Hour Vital Signs Date Time Temp Pulse Resp B/P (MAP) Pulse Ox O2 Delivery O2 Flow Rate FiO2 03/18/18 06:50 Non-Rebreather 12.0 100 03/18/18 06:49 39 26 98 Non-Rebreather 15.0 100 03/18/18 06:42 115 26 98 Non-Rebreather 15.0 100 03/18/18 04:00 98.0 120 32 107/62 (77) 94 03/18/18 04:00 127 03/18/18 01:17 118 26 96 Non-Rebreather 15.0 100 03/18/18 01:07 111 24 92 Non-Rebreather 15.0 100 03/18/18 00:00 97.7 128 32 109/60 (76) 92 03/17/18 21:00 Non-Rebreather 15.0 03/17/18 20:00 119 03/17/18 20:00 97.6 122 28 118/66 (83) 97 03/17/18 19:11 119 26 92 Non-Rebreather 15.0 100 03/17/18 19:03 114 24 89 Non-Rebreather 15.0 100 03/17/18 16:17 112 03/17/18 16:00 98.5 129 24 150/91 (110) 92 03/17/18 12:00 98.6 100 19 146/81 (102) 86 03/17/18 11:41 128 03/17/18 11:17 132 03/17/18 10:15 97.9 131 28 111/69 (83) 85 03/17/18 10:00 99.0 127 30 116/67 (83) 86 Intake and Output 03/17/18 03/18/18 19:00 07:00 Intake Total 1015 ml 520 ml Balance 1015 ml 520 ml Intake IV Total 1015 ml 520 ml # Voids 1 1 General Appearance: cachetic HEENT: normocephalic, atraumatic, anicteric, mucous membranes moist Respiratory/Chest: rhonchi Cardiovascular: normal peripheral pulses, normal rate, regular rhythm Abdomen: normal bowel sounds, soft, non tender, no organomegaly, non distended , other Extremities: no cyanosis, no clubbing, no edema Current Medications Medications (Trade) Dose Ordered Sig/Tamara Route PRN Reason Start Time Stop Time Status Last Admin Dose Admin Acetaminophen (Tylenol) 650 mg Q4H PRN NG Fever/Headache/Mild Pain 03/17/18 11:00 04/15/18 10:59 Acetylcysteine (Mucomyst) 200 mg Q6HRT HHN 03/17/18 19:00 04/16/18 18:59 03/18/18 06:48 Albuterol/ Ipratropium (Albuterol/ Ipratropium) 3 ml Q4H PRN HHN Shortness of Breath 03/17/18 14:15 03/22/18 14:14 Albuterol/ Ipratropium (Albuterol/ Ipratropium) 3 ml Q6HRT HHN 03/17/18 19:00 03/22/18 18:59 03/18/18 06:48 Dextrose (Dextrose 50%) 25 ml Q30M PRN IV Hypoglycemia 03/17/18 11:15 04/15/18 22:14 Dextrose (Dextrose 50%) 50 ml Q30M PRN IV Hypoglycemia 03/17/18 11:15 04/15/18 22:14 Dextrose/Sodium Chloride 1,000 ml @ 50 mls/hr Q20H IV 03/17/18 11:00 04/15/18 19:44 03/18/18 03:00 Heparin Sodium (Porcine) (Heparin 5000 units/ml) 5,000 units EVERY 12 HOURS SUBQ 03/17/18 21:00 04/15/18 20:59 03/18/18 09:32 Insulin Aspart (NovoLOG) BEFORE MEALS AND HS SUBQ 03/17/18 12:30 04/16/18 12:29 03/18/18 06:17 Lorazepam (Ativan) 1 mg Q6H PRN GT For Anxiety 03/17/18 12:00 03/23/18 11:59 Magnesium Hydroxide (Mom) 30 ml DAILY ORAL 03/18/18 09:00 04/16/18 08:59 Morphine Sulfate (Morphine 10mg/ 5ml Oral Soln) 1 mg Q6H PRN ORAL PAIN 4-10 03/17/18 12:00 04/15/18 11:59 Vitamin A/Vitamin D (A & D Oint) 1 applic EVERY 12 HOURS TOPIC 03/17/18 21:00 04/16/18 20:59 03/18/18 09:32 Jarett Griffin MD Mar 18, 2018 09:55
[2018-03-18 12:00] VITALS: BP 112/64
--- NOTE | 2018-03-18 13:56 | Diagnostic Imaging Report ---
EXAM: XR Chest, 1 View CLINICAL HISTORY: SOB TECHNIQUE: Frontal view of the chest. COMPARISON: Chest x-ray 03/17/18 756 FINDINGS: Lungs: Improved aeration of the right upper lobe. There is interstitial prominence. Left retrocardiac opacity/atelectasis/consolidation. Pleural space: Previously seen complete opacification of the right hemithorax has improved with now partly opacified with moderate right pleural effusion. New small left pleural effusion. No pneumothorax. Heart: Unremarkable. No cardiomegaly. Mediastinum: Unremarkable. Bones/joints: Unremarkable. Soft tissues: Right axillary surgical clips. Tubes, lines and devices: NG tube traverses the diaphragm tip is likely in the duodenum. IMPRESSION: 1. Previously seen complete opacification of the right hemithorax has improved with now partly opacified with moderate right pleural effusion. New small left pleural effusion. 2. Improved aeration of the right upper lobe. There is interstitial prominence. Left retrocardiac opacity/atelectasis/consolidation.
[2018-03-18 16:00] VITALS: BP 113/63
--- NOTE | 2018-03-18 17:29 | General Progress Note ---
Assessment/Plan Problem List: (1) Acute respiratory failure with hypoxia ICD Codes: J96.01 - Acute respiratory failure with hypoxia SNOMED: 76583360, 862854380 (2) Lung collapse ICD Codes: J98.19 - Other pulmonary collapse SNOMED: 09540236 (3) DM (diabetes mellitus) ICD Codes: E11.9 - Type 2 diabetes mellitus without complications SNOMED: 45579342 (4) Malnutrition ICD Codes: E46 - Unspecified protein-calorie malnutrition SNOMED: 08205134 (5) Alzheimer disease ICD Codes: G30.9 - Alzheimer's disease, unspecified; F02.80 - Dementia in other diseases classified elsewhere without behavioral disturbance SNOMED: 32936354 Assessment/Plan IVF resp treatments Will discuss with again for hospice Discussed with RN Subjective Allergies: Coded Allergies: NO KNOWN ALLERGIES (Unverified Allergy, Unknown, 01/27/15) Subjective ON FM Objective Last 24 Hour Vital Signs Date Time Temp Pulse Resp B/P (MAP) Pulse Ox O2 Delivery O2 Flow Rate FiO2 03/18/18 13:00 37 26 77 Non-Rebreather 15.0 100 03/18/18 12:55 36 24 76 Non-Rebreather 15.0 100 03/18/18 12:00 97.7 116 30 112/64 (80) 96 03/18/18 12:00 112 03/18/18 09:00 Non-Rebreather 15.0 03/18/18 08:00 115 03/18/18 08:00 97.0 112 28 101/61 (74) 97 03/18/18 06:50 Non-Rebreather 12.0 100 03/18/18 06:49 39 26 98 Non-Rebreather 15.0 100 03/18/18 06:42 115 26 98 Non-Rebreather 15.0 100 03/18/18 04:00 98.0 120 32 107/62 (77) 94 03/18/18 04:00 127 03/18/18 01:17 118 26 96 Non-Rebreather 15.0 100 03/18/18 01:07 111 24 92 Non-Rebreather 15.0 100 03/18/18 00:00 97.7 128 32 109/60 (76) 92 03/17/18 21:00 Non-Rebreather 15.0 11/30/18 20:00 119 03/17/18 20:00 97.6 122 28 118/66 (83) 97 03/17/18 19:11 119 26 92 Non-Rebreather 15.0 100 03/17/18 19:03 114 24 89 Non-Rebreather 15.0 100 Intake and Output 03/17/18 03/18/18 18:59 06:59 Intake Total 515 ml 1020 ml Balance 515 ml 1020 ml Intake IV Total 515 ml 1020 ml # Voids 1 1 Height (Feet): 5 Height (Inches): 3.00 Weight (Pounds): 100 Cardiovascular: normal rate Respiratory/Chest: lungs clear, rhonchi - bilaterally Edema: no edema noted Generalized Chilango Luna MD Mar 18, 2018 17:29
[2018-03-18 20:00] VITALS: BP 106/60
[2018-03-19] VITALS: BP 108/61
[2018-03-19] MEDS: D5 1/2NS 1,000 ML IV SCH
[2018-03-19 04:00] VITALS: BP 109/64
[2018-03-19] MEDS: NovoLOG Insulin Flexpen SUBQ SCH ×4 (06:05→21:00)
[2018-03-19] MEDS: Acetylcysteine 20% Soln 4ml HHN SCH ×4 (06:46→20:26)
[2018-03-19] MEDS: Albuterol/Ipratropium 3ml neb HHN SCH ×3 (06:46→20:21)
[2018-03-19 08:00] VITALS: BP 94/51
[2018-03-19] MEDS: Vitamin A&D Oint 2oz Tube TOPIC SCH ×2 (09:18→20:42)
[2018-03-19] MEDS: Milk of Magnesia 30ml Ud ORAL SCH (09:18)
[2018-03-19] MEDS: Heparin 5000 units/ml inj SUBQ SCH ×2 (09:21→20:43)
--- NOTE | 2018-03-19 10:11 | Pulmonology Progress Note ---
Assessment/Plan Problems: (1) Alzheimer disease (2) Mucus plugging of bronchi (3) Lung collapse (4) Encounter for nasogastric (NG) tube placement (5) Malnutrition (6) DM (diabetes mellitus) Assessment/Plan ASSESSMENT: The patient is an 82-year-old female, retirement resident, nonverbal at baseline with advanced dementia, dysphagia, NG tube, and multiple other medical problems, admitted with generalized failure to thrive and NG tube problems, now with acute hypoxemia secondary to complete opacification of the right hemithorax from mucus plugging. The patient is DNAR and we will attempt conservative measures to re-aerate the right lung. PROBLEM LIST: 1. Acute hypoxemic respiratory failure. 2. Complete opacification of right hemithorax. 3. Likely mucus plugging. 4. History of recurrent aspiration pneumonia. 5. Dysphagia, status post NG tube. 6. NG tube malfunction. 7. Advanced Alzheimer dementia. 8. Nonverbal at baseline. 9. History of breast cancer, status post mastectomy. 10. History of perforated diverticulitis. 11. History of recent VRE UTI. 12. DNAR. TREATMENT PLAN: 1. Optimize pulmonary hygiene/mobilize as tolerated. 2. Mmqot-bqr-tvlnl and p.r.n. DuoNeb bronchodilators. 3. Vuztt-lpa-kvthj and p.r.n. Mucomyst. 4. CPT q.i.d. 5. Aggressive suctioning. 6. Observe off antibiotics with a low threshold to start healthcare-associated coverage. 7. NPO. 8. mIVF 9. Monitor volumes and renal function. 10. DVT prophylaxis, heparin subcutaneous. 11. DNAR/DNI, continue to discuss goals of care. Subjective Allergies: Coded Allergies: NO KNOWN ALLERGIES (Unverified Allergy, Unknown, 01/27/15) Subjective AFVSS,on VM, CXR with imp aeration R lung Less cough + white clear secretions + congestion no F/C Objective Last 24 Hour Vital Signs Date Time Temp Pulse Resp B/P (MAP) Pulse Ox O2 Delivery O2 Flow Rate FiO2 03/19/18 06:49 106 26 96 Venturi Mask 14.0 55 03/19/18 06:48 Venturi Mask 14.0 55 03/19/18 06:42 105 22 95 Venturi Mask 14.0 55 03/19/18 04:00 98.7 101 22 109/64 (79) 99 12/2/18 04:00 106 03/19/18 00:26 119 25 100 Venturi Mask 14.0 55 03/19/18 00:26 114 23 100 Venturi Mask 14.0 55 03/19/18 00:00 116 03/19/18 00:00 98.0 120 22 108/61 (77) 96 03/18/18 20:46 Non-Rebreather 15.0 03/18/18 20:00 121 03/18/18 20:00 98.7 116 24 106/60 (75) 90 03/18/18 19:24 115 23 100 Venturi Mask 14.0 55 03/18/18 19:22 Venturi Mask 14.0 55 03/18/18 19:12 115 23 100 Non-Rebreather 15.0 100 03/18/18 16:00 115 03/18/18 16:00 98.2 115 30 113/63 (80) 100 03/18/18 13:00 37 26 77 Non-Rebreather 15.0 100 03/18/18 12:55 36 24 76 Non-Rebreather 15.0 100 03/18/18 12:00 97.7 116 30 112/64 (80) 96 03/18/18 12:00 112 Intake and Output 03/18/18 03/19/18 19:00 07:00 Intake Total 600 ml 550 ml Output Total 150 ml 200 ml Balance 450 ml 350 ml Intake Oral 0 ml IV Total 600 ml 550 ml Output Urine Total 150 ml 200 ml # Voids 1 General Appearance: cachetic HEENT: normocephalic, atraumatic Respiratory/Chest: rhonchi Cardiovascular: normal peripheral pulses, normal rate, regular rhythm Abdomen: normal bowel sounds, soft, non tender, no organomegaly, non distended , no mass Extremities: no cyanosis, no clubbing, no edema Microbiology Date/Time Source Procedure Growth Status 03/16/18 17:22 Rectum VRE Culture - Final Enterococcus Faecalis - Vre Complete 03/16/18 17:22 Rectum - Final NO CARBAPENEM-RESISTANT ENTEROBACTERI... Complete Current Medications Medications (Trade) Dose Ordered Sig/Tamara Route PRN Reason Start Time Stop Time Status Last Admin Dose Admin Acetaminophen (Tylenol) 650 mg Q4H PRN NG Fever/Headache/Mild Pain 03/17/18 11:00 04/15/18 10:59 Acetylcysteine (Mucomyst) 200 mg Q6HRT HHN 03/17/18 19:00 04/16/18 18:59 03/19/18 06:46 Albuterol/ Ipratropium (Albuterol/ Ipratropium) 3 ml Q4H PRN HHN Shortness of Breath 03/17/18 14:15 03/22/18 14:14 Albuterol/ Ipratropium (Albuterol/ Ipratropium) 3 ml Q6HRT HHN 03/17/18 19:00 03/22/18 18:59 03/19/18 06:46 Dextrose (Dextrose 50%) 25 ml Q30M PRN IV Hypoglycemia 03/17/18 11:15 04/15/18 22:14 Dextrose (Dextrose 50%) 50 ml Q30M PRN IV Hypoglycemia 03/17/18 11:15 04/15/18 22:14 Dextrose/Sodium Chloride 1,000 ml @ 50 mls/hr Q20H IV 03/17/18 11:00 04/15/18 19:44 03/19/18 00:00 Heparin Sodium (Porcine) (Heparin 5000 units/ml) 5,000 units EVERY 12 HOURS SUBQ 03/17/18 21:00 04/15/18 20:59 03/19/18 09:21 Insulin Aspart (NovoLOG) BEFORE MEALS AND HS SUBQ 03/17/18 12:30 04/16/18 12:29 03/18/18 17:44 Lorazepam (Ativan) 1 mg Q6H PRN GT For Anxiety 03/17/18 12:00 03/23/18 11:59 Magnesium Hydroxide (Mom) 30 ml DAILY ORAL 03/18/18 09:00 04/16/18 08:59 03/19/18 09:18 Morphine Sulfate (Morphine 10mg/ 5ml Oral Soln) 1 mg Q6H PRN ORAL PAIN 4-10 03/17/18 12:00 04/15/18 11:59 Vitamin A/Vitamin D (A & D Oint) 1 applic EVERY 12 HOURS TOPIC 03/17/18 21:00 04/16/18 20:59 03/19/18 09:18 Jarett Griffin MD Mar 19, 2018 10:11
--- NOTE | 2018-03-19 11:47 | General Progress Note ---
Assessment/Plan Problem List: (1) Acute respiratory failure with hypoxia ICD Codes: J96.01 - Acute respiratory failure with hypoxia SNOMED: 41204870, 743382002 (2) Lung collapse ICD Codes: J98.19 - Other pulmonary collapse SNOMED: 32945634 (3) DM (diabetes mellitus) ICD Codes: E11.9 - Type 2 diabetes mellitus without complications SNOMED: 31799522 (4) Malnutrition ICD Codes: E46 - Unspecified protein-calorie malnutrition SNOMED: 19620364 (5) Alzheimer disease ICD Codes: G30.9 - Alzheimer's disease, unspecified; F02.80 - Dementia in other diseases classified elsewhere without behavioral disturbance SNOMED: 06554489 Assessment/Plan IVF resp treatments Discussed with no feeding Discussed with RN Subjective Allergies: Coded Allergies: NO KNOWN ALLERGIES (Unverified Allergy, Unknown, 01/27/15) Subjective ON NC looks more comfortable Objective Last 24 Hour Vital Signs Date Time Temp Pulse Resp B/P (MAP) Pulse Ox O2 Delivery O2 Flow Rate FiO2 03/19/18 09:00 Non-Rebreather 15.0 03/19/18 08:00 97 03/19/18 08:00 97.7 101 30 94/51 (65) 98 03/19/18 06:49 106 26 96 Venturi Mask 14.0 55 03/19/18 06:48 Venturi Mask 14.0 55 03/19/18 06:42 105 22 95 Venturi Mask 14.0 55 03/19/18 04:00 98.7 101 22 109/64 (79) 99 03/19/18 04:00 106 03/19/18 00:26 119 25 100 Venturi Mask 14.0 55 03/19/18 00:26 114 23 100 Venturi Mask 14.0 55 03/19/18 00:00 116 03/19/18 00:00 98.0 120 22 108/61 (77) 96 03/18/18 20:46 Non-Rebreather 15.0 03/18/18 20:00 121 03/18/18 20:00 98.7 116 24 106/60 (75) 90 03/18/18 19:24 115 23 100 Venturi Mask 14.0 55 03/18/18 19:22 Venturi Mask 14.0 55 03/18/18 19:12 115 23 100 Non-Rebreather 15.0 100 12/1/18 16:00 115 03/18/18 16:00 98.2 115 30 113/63 (80) 100 03/18/18 13:00 37 26 77 Non-Rebreather 15.0 100 03/18/18 12:55 36 24 76 Non-Rebreather 15.0 100 03/18/18 12:00 97.7 116 30 112/64 (80) 96 03/18/18 12:00 112 Intake and Output 03/18/18 03/19/18 19:00 07:00 Intake Total 600 ml 600 ml Output Total 150 ml 200 ml Balance 450 ml 400 ml Intake Oral 0 ml IV Total 600 ml 600 ml Output Urine Total 150 ml 200 ml # Voids 1 Height (Feet): 5 Height (Inches): 3.00 Weight (Pounds): 100 Cardiovascular: normal rate Respiratory/Chest: lungs clear, rhonchi - bilaterally Edema: no edema noted Generalized Chilango Luna MD Mar 19, 2018 11:47
[2018-03-19 12:00] VITALS: BP 119/58
[2018-03-19] MEDS ORDERED: D5 1/2NS 1000ml IV ONE (14:45)
[2018-03-19 16:00] VITALS: BP 111/62
[2018-03-19 20:00] VITALS: BP 120/70
[2018-03-20] VITALS: BP 117/58
[2018-03-20] MEDS: Albuterol/Ipratropium 3ml neb HHN SCH ×2 (01:59→07:03)
[2018-03-20] MEDS: Acetylcysteine 20% Soln 4ml HHN SCH ×2 (01:59→07:03)
[2018-03-20] MEDS: D5 1/2NS 1,000 ML IV SCH (02:00)
[2018-03-20 04:00] VITALS: BP 100/56
[2018-03-20] MEDS: NovoLOG Insulin Flexpen SUBQ SCH (06:16)
[2018-03-20 08:00] VITALS: BP 130/71
[2018-03-20] MEDS: Milk of Magnesia 30ml Ud ORAL SCH (09:00)
[2018-03-20] MEDS: Heparin 5000 units/ml inj SUBQ SCH (09:00)
[2018-03-20] MEDS: Vitamin A&D Oint 2oz Tube TOPIC SCH (09:00)
--- NOTE | 2018-03-20 09:05 | Pulmonology Progress Note ---
Assessment/Plan Problems: (1) Alzheimer disease (2) Mucus plugging of bronchi (3) Lung collapse (4) Encounter for nasogastric (NG) tube placement (5) Malnutrition (6) DM (diabetes mellitus) Assessment/Plan ASSESSMENT: The patient is an 82-year-old female, intermediate resident, nonverbal at baseline with advanced dementia, dysphagia, NG tube, and multiple other medical problems, admitted with generalized failure to thrive and NG tube problems, now with acute hypoxemia secondary to complete opacification of the right hemithorax from mucus plugging. The patient is DNAR and we will attempt conservative measures to re-aerate the right lung. PROBLEM LIST: 1. Acute hypoxemic respiratory failure. 2. Complete opacification of right hemithorax. 3. Likely mucus plugging. 4. History of recurrent aspiration pneumonia. 5. Dysphagia, status post NG tube. 6. NG tube malfunction. 7. Advanced Alzheimer dementia. 8. Nonverbal at baseline. 9. History of breast cancer, status post mastectomy. 10. History of perforated diverticulitis. 11. History of recent VRE UTI. 12. DNAR. TREATMENT PLAN: 1. Optimize pulmonary hygiene/mobilize as tolerated. 2. Vdynf-cal-ahggl and p.r.n. DuoNeb bronchodilators. 3. Dqvgs-jnd-bksnv and p.r.n. Mucomyst. 4. CPT q.i.d. 5. Aggressive suctioning. 6. Observe off antibiotics with a low threshold to start healthcare-associated coverage. 7. NPO. 8. mIVF 9. Monitor volumes and renal function. 10. DVT prophylaxis, heparin subcutaneous. 11. DNAR/DNI, continue to discuss goals of care. Subjective Allergies: Coded Allergies: NO KNOWN ALLERGIES (Unverified Allergy, Unknown, 01/27/15) Subjective AFVSS, now on 5L + cough + white clear secretions + congestion no F/C Objective Last 24 Hour Vital Signs Date Time Temp Pulse Resp B/P (MAP) Pulse Ox O2 Delivery O2 Flow Rate FiO2 03/20/18 07:18 100 20 100 Nasal Cannula 5.0 40 03/20/18 07:03 103 20 99 Nasal Cannula 5.0 40 03/20/18 07:02 Nasal Cannula 5.0 40 03/20/18 04:00 99 03/20/18 04:00 98.7 99 24 100/56 (71) 100 03/20/18 02:10 102 20 100 Nasal Cannula 5.0 40 03/20/18 02:00 104 20 100 Nasal Cannula 5.0 40 03/20/18 00:00 97.9 108 26 117/58 (77) 97 03/19/18 21:00 Non-Rebreather 15.0 03/19/18 20:31 103 20 100 Nasal Cannula 5.0 40 03/19/18 20:21 102 20 96 Nasal Cannula 5.0 40 03/19/18 20:18 Nasal Cannula 5.0 40 03/19/18 20:00 102 03/19/18 20:00 97.9 104 24 120/70 (87) 100 03/19/18 16:00 98.2 108 28 111/62 (78) 96 03/19/18 16:00 114 03/19/18 13:59 105 20 100 Nasal Cannula 5.0 40 03/19/18 13:52 106 20 98 Nasal Cannula 5.0 40 03/19/18 12:00 105 03/19/18 12:00 97.9 108 26 119/58 (78) 97 Intake and Output 03/19/18 03/20/18 19:00 07:00 Intake Total 250 ml 500 ml Balance 250 ml 500 ml Intake Oral 0 ml IV Total 250 ml 500 ml # Voids 3 2 General Appearance: cachetic HEENT: normocephalic, atraumatic, anicteric, mucous membranes moist Respiratory/Chest: rhonchi Cardiovascular: normal peripheral pulses, normal rate, regular rhythm Abdomen: normal bowel sounds, soft, non tender, no organomegaly, non distended Extremities: no cyanosis, no clubbing, no edema Current Medications Medications (Trade) Dose Ordered Sig/Tamara Route PRN Reason Start Time Stop Time Status Last Admin Dose Admin Acetaminophen (Tylenol) 650 mg Q4H PRN NG Fever/Headache/Mild Pain 03/17/18 11:00 04/15/18 10:59 Acetylcysteine (Mucomyst) 200 mg Q6HRT HHN 03/17/18 19:00 04/16/18 18:59 03/20/18 07:03 Albuterol/ Ipratropium (Albuterol/ Ipratropium) 3 ml Q4H PRN HHN Shortness of Breath 03/17/18 14:15 03/22/18 14:14 Albuterol/ Ipratropium (Albuterol/ Ipratropium) 3 ml Q6HRT HHN 03/17/18 19:00 03/22/18 18:59 03/20/18 07:03 Dextrose (Dextrose 50%) 25 ml Q30M PRN IV Hypoglycemia 03/17/18 11:15 04/15/18 22:14 Dextrose (Dextrose 50%) 50 ml Q30M PRN IV Hypoglycemia 03/17/18 11:15 04/15/18 22:14 Dextrose/Sodium Chloride 1,000 ml @ 50 mls/hr Q20H IV 03/17/18 11:00 04/15/18 19:44 03/20/18 02:00 Heparin Sodium (Porcine) (Heparin 5000 units/ml) 5,000 units EVERY 12 HOURS SUBQ 03/17/18 21:00 04/15/18 20:59 03/19/18 20:43 Insulin Aspart (NovoLOG) BEFORE MEALS AND HS SUBQ 03/17/18 12:30 04/16/18 12:29 03/18/18 17:44 Lorazepam (Ativan) 1 mg Q6H PRN GT For Anxiety 03/17/18 12:00 03/23/18 11:59 Magnesium Hydroxide (Mom) 30 ml DAILY ORAL 03/18/18 09:00 04/16/18 08:59 03/19/18 09:18 Morphine Sulfate (Morphine 10mg/ 5ml Oral Soln) 1 mg Q6H PRN ORAL PAIN 4-10 03/17/18 12:00 04/15/18 11:59 Vitamin A/Vitamin D (A & D Oint) 1 applic EVERY 12 HOURS TOPIC 03/17/18 21:00 04/16/18 20:59 03/19/18 20:42 Jarett Griffin MD Mar 20, 2018 09:05
[2018-03-20] MEDS ORDERED: D5 1/2NS 1,000 ML IV SCH (10:00)
[2018-03-20] MEDS ORDERED: Albuterol/Ipratropium 3ml neb HHN PRN (10:15)
[2018-03-20] MEDS ORDERED: Morphine Sulfate 10mg/5ml Oral Soln ud ORAL PRN (10:30)
[2018-03-20] MEDS ORDERED: NovoLOG Insulin Flexpen SUBQ SCH (11:30)
--- NOTE | 2018-03-20 11:30 | General Progress Note ---
Assessment/Plan Problem List: (1) Acute respiratory failure with hypoxia ICD Codes: J96.01 - Acute respiratory failure with hypoxia SNOMED: 55520533, 017832285 (2) Lung collapse ICD Codes: J98.19 - Other pulmonary collapse SNOMED: 87815049 (3) DM (diabetes mellitus) ICD Codes: E11.9 - Type 2 diabetes mellitus without complications SNOMED: 20238778 (4) Malnutrition ICD Codes: E46 - Unspecified protein-calorie malnutrition SNOMED: 52742899 (5) Alzheimer disease ICD Codes: G30.9 - Alzheimer's disease, unspecified; F02.80 - Dementia in other diseases classified elsewhere without behavioral disturbance SNOMED: 61440682 Assessment/Plan comfort measures DC today Subjective Allergies: Coded Allergies: NO KNOWN ALLERGIES (Unverified Allergy, Unknown, 01/27/15) Subjective ON NC looks more comfortable Objective Last 24 Hour Vital Signs Date Time Temp Pulse Resp B/P (MAP) Pulse Ox O2 Delivery O2 Flow Rate FiO2 03/20/18 08:00 97.4 115 20 130/71 (90) 97 03/20/18 07:18 100 20 100 Nasal Cannula 5.0 40 03/20/18 07:03 103 20 99 Nasal Cannula 5.0 40 03/20/18 07:02 Nasal Cannula 5.0 40 03/20/18 04:00 99 03/20/18 04:00 98.7 99 24 100/56 (71) 100 03/20/18 02:10 102 20 100 Nasal Cannula 5.0 40 03/20/18 02:00 104 20 100 Nasal Cannula 5.0 40 03/20/18 00:00 97.9 108 26 117/58 (77) 97 03/19/18 21:00 Non-Rebreather 15.0 03/19/18 20:31 103 20 100 Nasal Cannula 5.0 40 03/19/18 20:21 102 20 96 Nasal Cannula 5.0 40 03/19/18 20:18 Nasal Cannula 5.0 40 03/19/18 20:00 102 03/19/18 20:00 97.9 104 24 120/70 (87) 100 03/19/18 16:00 98.2 108 28 111/62 (78) 96 03/19/18 16:00 114 03/19/18 13:59 105 20 100 Nasal Cannula 5.0 40 03/19/18 13:52 106 20 98 Nasal Cannula 5.0 40 03/19/18 12:00 105 03/19/18 12:00 97.9 108 26 119/58 (78) 97 Intake and Output 03/19/18 03/20/18 19:00 07:00 Intake Total 250 ml 500 ml Balance 250 ml 500 ml Intake Oral 0 ml IV Total 250 ml 500 ml # Voids 3 2 Height (Feet): 5 Height (Inches): 3.00 Weight (Pounds): 100 Cardiovascular: normal rate Respiratory/Chest: lungs clear, rhonchi - bilaterally Edema: no edema noted Generalized Chilango Luna MD Mar 20, 2018 11:29
[2018-03-20 12:00] VITALS: BP 129/70
[2018-03-20] MEDS ORDERED: Albuterol/Ipratropium 3ml neb HHN SCH (13:00)
[2018-03-20] MEDS ORDERED: D5 1/2NS 1000ml IV ONE (13:59)
[2018-03-20] MEDS ORDERED: Vitamin A&D Oint 2oz Tube TOPIC SCH (21:00)
--- NOTE | 2018-03-23 11:00 | Discharge Summary ---
Discharge Summary Discharge Summary _ DATE OF ADMISSION: 03/16/2018 DATE OF DISCHARGE: 03/20/2018 REASON FOR ADMISSION: 82 years old female with DNR/DNI status, end stage Alzheimer dementia, diabetes mellitus, bedridden, recurrent aspiration pneumonia, high aspiration risk, history of breast cancer status post mastectomy, history of perforated diverticulitis, history of recent VRE UTI,, was sent from the senior care facility for malfunctioning NG tube In the past family declined G-tube placement. Patient subsequently had NG tube placement as per her wishes Patient was residing at the senior care facility. Nursing staff at the facility noted clogged NG tube. Patient subsequently was sent for evaluation. Upon initial evaluation in the ED vital signs were stable, Laboratory workup revealed no leukocytosis, hemoglobin 9.5 hematocrit 30.2. BUN 20, creatinine 0.5. Troponin negative. C chest x-ray revealed no definite acute process. Patient was admitted with diagnosis of malfunctioning NG tube , dehydration CONSULTANTS: pulmonary Dr. Griffin [facility]SE: Patient initially admitted to medical surgical floor, however subsequently she became hypoxemic and tachycardic with saturation in the low 50s. Ultimately patient was placed on 100% nonrebreathing mask. ABG revealed pH 7.32 with O2 sat 67% Chest x-ray revealed complete opacification of the right hemithorax, likely secondary to mucus plugging and atelectasis. Patient was transferred to [facility]. Pulmonology consult was requested. Patient initially started on empiric anhistic. Supplemental oxygen titrated to keep pulse oximetry above 92%. BiPAP was held due to altered mental status and lung collapse. No plans for intubation or bronchoscopy given DNR/DNI status . Patient was nothing by mouth. Nebulizing therapy with DuoNeb provided around the clock and as needed. Patient was on on Mucomyst around the clock and as needed. Chest physical therapy provided four times a day. Frequent suctioning was implemented. Take [employer] Wait[employer] recommended to keep patient off antibiotics with a low threshold for healthcare associated coverage. DVT prophylaxis provided. Follow-up chest x-ray revealed improvement in right lung collapse , now partially opacified, moderate right pleural effusion and improved aeration of the right upper lobe. Blood sugar was managed with sliding scale of insulin. Blood pressure was closely monitored and remained stable. Supportive care provided. Further goals of care were discussed with the family. Family decided to stop tube feeding. Comfort measures. provided. Patient on was discharged to senior care facility for end-of-life care with comfort measures FINAL DIAGNOSES: Acute hypoxemic respiratory failure Right lung collapse- with some improvement Likely mucous plugging History of recurrent aspiration pneumonia Dysphagia , status post NG tube NG tube malfunctioning Advanced Alzheimer dementia History of breast cancer, status post mastectomy History of perforated diverticulitis , History of recent VRE UTI Comfort care DISCHARGE MEDICATIONS: See Medication Reconciliation list. DISCHARGE INSTRUCTIONS: Patient was discharged to senior care facility for end-of-life care with comfort measures. I have been assigned to dictate discharge summary for this account. I was not involved in the patient's management. Cristina Farmer NP Mar 23, 2018 11:00
--- NOTE | 2018-03-23 20:14 | Cardiology Report ---
APPROVED REPORT EKG Measurement Heart [id number] SC [id number] Sinus tachycardia Otherwise normal ECG
== END 2018-03-20 14:00 | DRG 189 ==
LOC: EDBD 11:57 → EMR 12:35 → 4E 14:15 → EDBEDREQ 14:23 → 2W 03-17 10:54 → 4E 03-20 09:40
DX: J96.01 Acute respiratory failure with hypoxia (principal); E46 Unspecified protein-calorie malnutrition; J98.19 Other pulmonary collapse; R13.10 Dysphagia, unspecified; Z51.5 Encounter for palliative care; J98.09 Other diseases of bronchus, not elsewhere classified; Z85.3 Personal history of malignant neoplasm of breast; G30.9 Alzheimer's disease, unspecified; F02.80 Dementia in other diseases classified elsewhere, unspecified severity, without behavioral disturbance, psychotic disturbance, mood disturbance, and anxiety; Z90.10 Acquired absence of unspecified breast and nipple; E86.0 Dehydration
CPT/HCPCS: 36415; 36600; 71045; 80053; 82550; 82553; 82803; 82962; 84484; 85025; 85610; 85730; 87081; 93005; 94640; 94664; 99285; J1815; J7620